=== PATIENT | female | born 1980 | race Caucasian/White ===

== ENCOUNTER 2016-07-22 08:09 | Observation (INO) | payer SELFPAY ==
[~2016-07-22] VITALS: Ht 175.3 cm; Wt 90.0 kg
[2016-07-22] VITALS (8 sets, daily range): BP systolic 115–170; BP diastolic 57–96; PULSE 98–115; RESP 14–18; TEMP 98–99.2; O2SAT 95–100
[2016-07-22] MEDS ORDERED: SODIUM CHLOR 0.9% 1000 ML INJ 1,000 ML IV SCH (08:42)
[2016-07-22] MEDS ORDERED: MORPHINE SULFATE 4 MG/ML INJ IV PUSH ONE ×3 (08:45→16:45)
[2016-07-22] MEDS ORDERED: ONDANSETRON HCL 4 MG/2 ML VIAL IVP ONE (08:45)
--- NOTE | 2016-07-22 08:48 | PD ---
HPI Chief Complaint: GI Complaint Time Seen by Provider: 08:32 Travel History International Travel<30 days: No Contact w/Intl Traveler<30days: No Traveled to known affect area: No History of Present Illness HPI 35yo F with PMH of asthma presents to the ED with abdominal cramping and bloody diarrhea for 3-4 days. States cramping is intermittent and mainly lower abdomen. Diarrhea is bright red and pt has never had this before. +Nausea and NBNB vomiting. Pt is a chronic alcohol user. Fever today. Denies any chest pain, sob, urinary complaint, traveling, vaginal bleeding or discharge. Has family history of liver CA but not colon CA. Never had colonoscopy. PFSH Past Medical History ?: Not Social History Tobacco Use: No Allergies-Medications (Allergen,Severity, Reaction): Coded Allergies: No Known Allergies (Unverified , 07/22/16) Reported Meds & Prescriptions Reported Meds & Active Scripts Active Zofran Odt (Ondansetron Odt) 4 Mg Tab 4 Mg SL Q8HR PRN Proair Hfa 8.5 GM Inh (Albuterol Sulfate) 90 Mcg/Act Aer 1 Puff INH Q4H PRN 108 mcg/actuation Acetaminophen Extra Strength (Acetaminophen) 500 Mg Tab 500 Mg PO Q6H PRN Omeprazole 40 Mg Cap 40 Mg PO DAILY Reported Proair Hfa 8.5 GM Inh (Albuterol Sulfate) 90 Mcg/Act Aer 2 Puff INH Q4-6H PRN 108 mcg/actuation Review of Systems Except as stated in HPI: all other systems reviewed are Neg Physical Exam Narrative GENERAL: 35yo F in mild distress. SKIN: Focused skin assessment warm/dry. HEAD: Atraumatic. Normocephalic. CARDIOVASCULAR: Mildly tachycardic. No murmur appreciated. RESPIRATORY: No accessory muscle use. Clear to auscultation. Breath sounds equal bilaterally. GASTROINTESTINAL: Abdomen soft, +Suprapubic ttp > RLQ. No rebound tenderness or guarding. BACK: +CVA tenderness on left. RECTAL: No external or internal hemorrhoids palpated. Brown stool, hemaprompt positive. MUSCULOSKELETAL: No obvious deformities. No clubbing. No cyanosis. No edema. NEUROLOGICAL: Awake and alert. No obvious cranial nerve deficits. Motor grossly within normal limits. Normal speech. PSYCHIATRIC: Appropriate mood and affect; insight and judgment normal. Data Data Last Documented VS Vital Signs Date Time Temp Pulse Resp B/P Pulse Ox O2 Delivery O2 Flow Rate FiO2 07/22/16 16:12 115 14 130/80 98 Room Air 07/22/16 08:48 99.2 Orders Complete Blood Count With Diff (07/22/16 08:42) Comprehensive Metabolic Panel (07/22/16 08:42) Lipase (07/22/16 08:42) Prothrombin Time / Inr (Pt) (07/22/16 08:42) Act Partial Throm Time (Ptt) (07/22/16 08:42) Urinalysis - C+S If Indicated (07/22/16 08:42) Ct Abd/Pel W Iv Contrast(Rout) (07/22/16 08:42) Iv Access Insert/Monitor (07/22/16 08:42) Ecg Monitoring (07/22/16 08:42) Oximetry (07/22/16 08:42) Morphine Inj (Morphine Inj) (07/22/16 08:45) Ondansetron Inj (Zofran Inj) (07/22/16 08:45) Sodium Chlor 0.9% 1000 Ml Inj (Ns 1000 M (07/22/16 08:42) Sodium Chloride 0.9% Flush (Ns Flush) (07/22/16 08:45) Ed Urine Pregnancytest Poc (07/22/16 08:42) Type And Screen (07/22/16 08:48) Iohexol 350 Inj (Omnipaque 350 Inj) (07/22/16 09:34) Morphine Inj (Morphine Inj) (07/22/16 11:00) Sodium Chlor 0.9% 1000 Ml Inj (Ns 1000 M (07/22/16 11:00) Pantoprazole Inj (Protonix Inj) (07/22/16 13:00) Gc And Chlamydia Pcr (07/22/16 15:34) Wet Prep Profile (07/22/16 15:34) Sodium Chlor 0.9% 1000 Ml Inj (Ns 1000 M (07/22/16 15:45) Sodium Chlor 0.9% 1000 Ml Inj (Ns 1000 M (07/22/16 16:45) Morphine Inj (Morphine Inj) (07/22/16 16:45) Thyroid Stimulating Hormone (07/22/16 16:40) Us Pelvis Comp Demand Generation Manager/Non-Preg (07/22/16 ) Admit Order (Ed Use Only) (07/22/16 17:57) Consult Gastroenterology (07/22/16 ) Labs Laboratory Tests Test 07/22/16 07/22/16 07/22/16 07/22/16 08:20 08:25 08:45 15:40 White Blood Count 11.6 TH/MM3 Red Blood Count 4.33 MIL/MM3 Hemoglobin 13.7 GM/DL Hematocrit 40.2 % Mean Corpuscular Volume 92.8 FL Mean Corpuscular Hemoglobin 31.6 PG Mean Corpuscular Hemoglobin 34.1 % Concent Red Cell Distribution Width 13.0 % Platelet Count 305 TH/MM3 Mean Platelet Volume 8.0 FL Neutrophils (%) (Auto) 75.4 % Lymphocytes (%) (Auto) 14.4 % Monocytes (%) (Auto) 8.7 % Eosinophils (%) (Auto) 1.2 % Basophils (%) (Auto) 0.3 % Neutrophils # (Auto) 8.8 TH/MM3 Lymphocytes # (Auto) 1.7 TH/MM3 Monocytes # (Auto) 1.0 TH/MM3 Eosinophils # (Auto) 0.1 TH/MM3 Basophils # (Auto) 0.0 TH/MM3 CBC Comment DIFF FINAL Differential Comment Prothrombin Time 10.2 SEC Prothromb Time International 0.9 RATIO Ratio Activated Partial 26.7 SEC Thromboplast Time Sodium Level 135 MEQ/L Potassium Level 4.3 MEQ/L Chloride Level 102 MEQ/L Carbon Dioxide Level 24.6 MEQ/L Anion Gap 8 MEQ/L Blood Urea Nitrogen 9 MG/DL Creatinine 0.78 MG/DL Estimat Glomerular Filtration 85 ML/MIN Rate Random Glucose 86 MG/DL Calcium Level 8.8 MG/DL Total Bilirubin 0.3 MG/DL Aspartate Amino Transf 14 U/L (AST/SGOT) Alanine Aminotransferase 17 U/L (ALT/SGPT) Alkaline Phosphatase 121 U/L Total Protein 8.4 GM/DL Albumin 3.4 GM/DL Lipase 149 U/L Urine Color YELLOW Urine Turbidity CLEAR Urine pH 5.0 Urine Specific [place] 1.014 Urine Protein NEG mg/dL Urine Glucose (UA) NEG mg/dL Urine Ketones NEG mg/dL Urine Occult Blood TRACE Urine Nitrite NEG Urine Bilirubin NEG Urine Urobilinogen LESS THAN 2.0 MG/DL Urine Leukocyte Esterase NEG Urine RBC 1 /hpf Urine Squamous Epithelial 1 /hpf Cells Urine Mucus FEW /lpf Microscopic Urinalysis Comment CULT NOT INDICATED Blood Type A POSITIVE Antibody Screen NEGATIVE Blood Bank Comment Clue Cells (Wet Prep) NS Vaginal Trichomonas (Wet Prep) NS Vaginal Yeast (Wet Prep) NS Chlamydia trachomatis DNA NOT DETECTED (PCR) Neisseria gonorrhoeae DNA NOT DETECTED (PCR) Test 07/22/16 17:30 Thyroid Stimulating Hormone 4.800 uIU/ML 3rd Gen [facility] Medical Decision Making Medical Screen Exam Complete: Yes Emergency Medical Condition: Yes Interpretation(s) Laboratory Tests Test 07/22/16 07/22/16 07/22/16 08:20 08:25 08:45 White Blood Count 11.6 TH/MM3 (4.0-11.0) Red Blood Count 4.33 MIL/MM3 (4.00-5.30) Hemoglobin 13.7 GM/DL (11.6-15.3) Hematocrit 40.2 % (35.0-46.0) Mean Corpuscular Volume 92.8 FL (80.0-100.0) Mean Corpuscular Hemoglobin 31.6 PG (27.0-34.0) Mean Corpuscular Hemoglobin 34.1 % Concent (32.0-36.0) Red Cell Distribution Width 13.0 % (11.6-17.2) Platelet Count 305 TH/MM3 (150-450) Mean Platelet Volume 8.0 FL (7.0-11.0) Neutrophils (%) (Auto) 75.4 % (16.0-70.0) Lymphocytes (%) (Auto) 14.4 % (9.0-44.0) Monocytes (%) (Auto) 8.7 % (0.0-8.0) Eosinophils (%) (Auto) 1.2 % (0.0-4.0) Basophils (%) (Auto) 0.3 % (0.0-2.0) Neutrophils # (Auto) 8.8 TH/MM3 (1.8-7.7) Lymphocytes # (Auto) 1.7 TH/MM3 (1.0-4.8) Monocytes # (Auto) 1.0 TH/MM3 (0-0.9) Eosinophils # (Auto) 0.1 TH/MM3 (0-0.4) Basophils # (Auto) 0.0 TH/MM3 (0-0.2) CBC Comment DIFF FINAL Differential Comment Prothrombin Time 10.2 SEC (9.8-11.6) Prothromb Time International 0.9 RATIO Ratio Activated Partial 26.7 SEC Thromboplast Time (24.3-30.1) Sodium Level 135 MEQ/L (136-145) Potassium Level 4.3 MEQ/L (3.5-5.1) Chloride Level 102 MEQ/L (98-107) Carbon Dioxide Level 24.6 MEQ/L (21.0-32.0) Anion Gap 8 MEQ/L (5-15) Blood Urea Nitrogen 9 MG/DL (7-18) Creatinine 0.78 MG/DL (0.50-1.00) Estimat Glomerular Filtration 85 ML/MIN (>89) Rate Random Glucose 86 MG/DL (74-106) Calcium Level 8.8 MG/DL (8.5-10.1) Total Bilirubin 0.3 MG/DL (0.2-1.0) Aspartate Amino Transf 14 U/L (15-37) (AST/SGOT) Alanine Aminotransferase 17 U/L (10-53) (ALT/SGPT) Alkaline Phosphatase 121 U/L (45-117) Total Protein 8.4 GM/DL (6.4-8.2) Albumin 3.4 GM/DL (3.4-5.0) Lipase 149 U/L (73-393) Urine Color YELLOW (YELLW/STRAW) Urine Turbidity CLEAR (CLEAR) Urine pH 5.0 (5.0-8.5) Urine Specific [place] 1.014 (1.002-1.035) Urine Protein NEG mg/dL (NEG-TRACE) Urine Glucose (UA) NEG mg/dL (NEG) Urine Ketones NEG mg/dL (NEG) Urine Occult Blood TRACE (NEG) Urine Nitrite NEG (NEG) Urine Bilirubin NEG (NEG) Urine Urobilinogen LESS THAN 2.0 MG/DL (LESS THAN 2.0) Urine Leukocyte Esterase NEG (NEG) Urine RBC 1 /hpf (0-3) Urine Squamous Epithelial 1 /hpf (0-5) Cells Urine Mucus FEW /lpf (OCC) Microscopic Urinalysis Comment CULT NOT INDICATED Blood Type A POSITIVE Antibody Screen NEGATIVE Blood Bank Comment Last Impressions Abdomen/Pelvis CT 07/22/16 0842 Signed Impressions: Service Date/Time: Friday, July 22, 2016 09:29 - CONCLUSION: No acute disease. Royal Monterroso MD Differential Diagnosis Inflammatory bowel disease vs. infectious colitis vs. pyelonephritis vs. nephrolithiasis vs. appendicitis Narrative Course 35yo F with c/o abdominal pain and blood in bowel movement. Pt is well appearing and rectal exam showed brown stool with trace of positive hemoccult. Pt given pantoprazole 40mg IV. Labs reviewed, mild leukocytosis at 11.6. Lipase normal. Mildly elevated alk phos at 121. UA showed no leukocyte or nitrite. CT a/p showed no acute disease. Pt was given morphine 4mg IV and reevaluated at bedside. States pain went away but now it is coming back so another 4mg IV of morphine given. Pt given zofran and NS IVF and now is no longer nauseous. Pt tolerating PO. Pt is requesting proair prescription because she ran out of it and has not found a PMD but is not sob and not in asthma exacerbation. However, pt is still tachycardic at 110-115bpm after 2 liters of IVF NS. Pt states she had cyst in right ovary before. Pelvic exam showed mild white physiologic appearing discharge. Wet prep negative. US pelvis showed 16mm right ovarian cyst. Otherwise normal pelvic ultrasound. Pt reevaluated at bedside. HR is now 103-105 after 3 liters of IVF NS. Pt given 3 doses of morphine for pain and still with some abdominal pain. Although pain has improved. Will admit pt for observation for persistent tachycardia and monitor H/H for lower GI bleed. Discussed with Dr. Ferraro and accepted to her service. [facility] Point of Care Internal Pos. & Neg. Controls: Passed Fecal Specimen Occult Blood: Positive Diagnosis Primary Impression: Abdominal pain Qualified Code: R10.9 - Abdominal pain, unspecified location Admitting Information Admitting Physician Requests: Observation Additional Instructions: Please follow up with GI clinic in 1-2 days. Return to the ED if symptoms worsen. Scripts Ondansetron Odt (Zofran Odt)4 Mg Tab4 Mg SL Q8HR PRN (Nausea/Vomiting) #6 TAB Ref 0 Prov:LopezMarcella 07/22/16 Albuterol 8.5 GM Inh (Proair Hfa 8.5 GM Inh)90 Mcg/Act Aer1 Puff INH Q4H PRN ( SHORTNESS OF BREATH) #1 INHALER Ref 0 108 mcg/actuation Prov:Marcella Lopez DO 07/22/16 Acetaminophen (Acetaminophen Extra Strength)500 Mg Tys881 Mg PO Q6H PRN (PAIN SCALE 1 TO 4) #20 TAB Ref 0 Prov:Marcella Lopez DO 07/22/16 Omeprazole 40 Mg Cap40 Mg PO DAILY #7 CAP Ref 0 Prov:Marcella Lopez DO 07/22/16 Marcella Lopez DO July 22, 2016 08:48
[2016-07-22] MEDS ORDERED: ALBUAER3 INH ×2 (08:54→12:21)
[2016-07-22 09:01] LABS: AUTOMATED NEUTROPHIL # 8.8 TH/MM3 (1.8-7.7); BASOPHIL % 0.3 % (0.0-2.0); EOSINOPHIL # 0.1 TH/MM3 (0-0.4); EOSINOPHIL % 1.2 % (0.0-4.0); HEMATOCRIT 40.2 % (35.0-46.0); HEMO FLAGS DIFF FINAL; LYMPH % 14.4 % (9.0-44.0); LYMPHOCYTE # 1.7 TH/MM3 (1.0-4.8); MEAN CELL VOLUME 92.8 FL (80.0-100.0); MEAN CORPUSCULAR HEMOGLOBIN 31.6 PG (27.0-34.0); MEAN CORPUSCULAR HGB CONC 34.1 % (32.0-36.0); MONO % 8.7 % (0.0-8.0); NEUT % 75.4 % (16.0-70.0); PLATELET COUNT 305 TH/MM3 (150-450); RED BLOOD COUNT 4.33 MIL/MM3 (4.00-5.30); WHITE BLOOD COUNT 11.6 TH/MM3 (4.0-11.0)
[2016-07-22 09:04] LABS: BLOOD, URINE TRACE (NEG); COMMENT (UR) CULT NOT INDICATED; CULTURE IF INDICATED CULT NOT INDICATED; GLUCOSE,URINE NEG (NEG); KETONE, URINE NEG (NEG); MUCUS URINE FEW /lpf (OCC); NITRITE,URINE NEG (NEG); SQUAMOUS EPITHELIAL CELL URINE 1 /hpf (0-5); URINE COLOR YELLOW (YELLW/STRAW)
[2016-07-22 09:13] LABS: APTT (PATIENT) 26.7 SEC (24.3-30.1); INTERNATIONAL NORMALIZED RATIO 0.9 RATIO; PROTHROMBIN TIME - PATIENT 10.2 SEC (9.8-11.6)
[2016-07-22 09:16] LABS: ANION GAP 8 MEQ/L (5-15); AST (GOT) 14 U/L (15-37); BICARBONATE 24.6 MEQ/L (21.0-32.0); BLOOD UREA NITROGEN 9 MG/DL (7-18); CHLORIDE 102 MEQ/L (98-107); GLOMERULAR FILTRATION RATE 85 ML/MIN (>89); POTASSIUM 4.3 MEQ/L (3.5-5.1); SODIUM (NA) 135 MEQ/L (136-145)
[2016-07-22 09:19] LABS: ALKALINE PHOSPHATASE 121 U/L (45-117); ALT (GPT) 17 U/L (10-53); TOTAL BILIRUBIN ADULT 0.3 MG/DL (0.2-1.0)
[2016-07-22] MEDS ORDERED: IOHEXOL 350 MG/ML 10 ML VIAL (for RAD DIAG) IV ONE (09:34)
--- NOTE | 2016-07-22 09:45 | RADRPT ---
EXAM DATE/TIME: 07/22/2016 09:29 [facility] COMPARISON: No previous studies available for comparison. INDICATIONS : Lower abdomen pain and diarrhea for four days. IV CONTRAST: 96 cc Omnipaque 350 (iohexol) IV ORAL CONTRAST: No oral contrast ingested. RADIATION DOSE: 12.51 CTDIvol (mGy) MEDICAL HISTORY : None SURGICAL HISTORY : None. ENCOUNTER: Initial ACUITY: 4 - 6 days PAIN SCALE: 6/10 LOCATION: Bilateral lower quadrant TECHNIQUE: Volumetric scanning of the abdomen and pelvis was performed. Using automated exposure control and ad justment of the mA and/or kV according to patient size, radiation dose was kept as low as reasonably achievable to obtain optimal diagnostic quality images. FINDINGS: LOWER LUNGS: The visualized lower lungs are clear. LIVER: Homogeneous density without lesion. There is no dilation of the biliary tree. No calcified gallston es. SPLEEN: Normal size without lesion. PANCREAS: Within normal limits. KIDNEYS: Normal in size and shape. There is no mass, stone or hydronephrosis. ADRENAL GLANDS: Within normal limits. VASCULAR: There is no aortic aneurysm. BOWEL/MESENTERY: The stomach, small bowel, and colon demonstrate no acute abnormality. There is no free intraperitone al air or fluid. ABDOMINAL WALL: Within normal limits. RETROPERITONEUM: There is no lymphadenopathy. BLADDER: No wall thickening or mass. REPRODUCTIVE: Within normal limits. INGUINAL: There is no lymphadenopathy or hernia. MUSCULOSKELETAL: Within normal limits for patient age. CONCLUSION: No acute disease. Royal Monterroso MD on July 22, 2016 at 9:41 Board Certified Radiologist. This report was verified electronically.
[2016-07-22] MEDS ORDERED: SODIUM CHLOR 0.9% 1000 ML INJ 1,000 ML IV ONE ×3 (11:00→16:45)
[2016-07-22] MEDS ORDERED: ACET500T36 PO (11:34)
[2016-07-22] MEDS ORDERED: OMEP40CA2 PO (11:34)
[2016-07-22] MEDS ORDERED: ZOFR4TAB3 SL (12:28)
[2016-07-22] MEDS ORDERED: PANTOPRAZOLE SODIUM 40 MG VIAL IV PUSH ONE (13:00)
--- NOTE | 2016-07-22 17:21 | RADRPT ---
EXAM DATE/TIME: 07/22/2016 15:46 [facility] COMPARISON: No previous studies available for comparison. INDICATIONS : Pelvic pain. MEDICAL HISTORY : Asthma. Diarrhea. SURGICAL HISTORY : None. ENCOUNTER: Initial ACUITY: 4-6 days PAIN SCORE: 5/10 LOCATION: Bilateral pelvis MEASUREMENTS: UTERUS: 8.1 x 5.3 x 3.1 cm ENDOMETRIAL STRIPE: 11 mm RIGHT OVARY: 3.6 x 2.4 x 2.1 cm LEFT OVARY: 3.9 x 2.3 x 1.7 cm FINDINGS: UTERUS: The myometrium has homogeneous echotexture without mass. RIGHT OVARY: Ovary contains no mass or lesion. A 16mm cyst is identified in the ovary. LEFT OVARY: Ovary contains no mass or significant cystic lesion. MISCELLANEOUS: No free fluid. CONCLUSION: 16mm right ovarian cyst. Otherwise normal pelvic ultrasound. Royal Monterroso MD on July 22, 2016 at 17:17 Board Certified Radiologist. This report was verified electronically.
[2016-07-22 18:21] LABS: CHLAMYDIA PCR NOT DETECTED (NOT DETECT); NEISSERIA PCR NOT DETECTED (NOT DETECT)
--- NOTE | 2016-07-22 18:57 | HHI.HP ---
HPI Service [facility] Primary Care Physician No Primary Care Physician Admission Diagnosis Lower GI bleed, persistent tachcardia Diagnoses: Chief Complaint: Abdominal cramping and bright red blood x 3 days. Travel History International Travel<30 Days: No Contact w/Intl Traveler <30 Da: No Traveled to Known Affected Are: No History of Present Illness Ms. Bernal is a 35-year-old female with a known history of alcohol abuse who currently drinks roughly eight beers per day who presented to the ED with complaints of lower abdominal pain and bright red blood in stools x 3 days. Patient states that she noticed her pain has been an 8/10 on pain scale, sharp, intermittent, initially started in her right lower quadrant which eventually radiated to her back. Patient does complain of diarrhea for several weeks now. Also states that her pain has been impeding her appetite, making her nauseous with associated occasional vomiting. Patient states her last missed period was two weeks ago. She does drink a significant amount of alcohol, at least eight beers per day. Denies any recent fever, cough, shortness of breath, chest pain or dizziness. Review of Systems Constitutional: COMPLAINS OF: Fever, Change in appetite Gastrointestinal: COMPLAINS OF: Abdominal pain, Bloody stools, Diarrhea, Nausea , Vomiting Except as stated in HPI: all other systems reviewed are Neg Past Family Social History Past Medical History Alcohol abuse Polycystic Ovarian disease History of abnormal pap, lack of follow up. Past Surgical History Eustachian tubes as a child. Reported Medications Active Zofran Odt (Ondansetron Odt) 4 Mg Tab 4 Mg SL Q8HR PRN Proair Hfa 8.5 GM Inh (Albuterol Sulfate) 90 Mcg/Act Aer 1 Puff INH Q4H PRN 108 mcg/actuation Acetaminophen Extra Strength (Acetaminophen) 500 Mg Tab 500 Mg PO Q6H PRN Omeprazole 40 Mg Cap 40 Mg PO DAILY Reported Proair Hfa 8.5 GM Inh (Albuterol Sulfate) 90 Mcg/Act Aer 2 Puff INH Q4-6H PRN 108 mcg/actuation Allergies: Coded Allergies: No Known Allergies (Unverified , 07/22/16) Active Ordered Medications Current Medications Medications (Trade) Dose Ordered Sig/Tyler Route Start Time Stop Time Status Last Admin (NS Flush) 2 ml UNSCH PRN IV FLUSH 07/22/16 08:45 Family History Patients paternal medical history significant for alcoholism. Patient mother has a significant medical history of hypertension. Social History Patient lives at home with fiance. Denies any tobacco use. Does admit to drinking 8 beers per day. Denies any illicit drug use. Physical Exam Vital Signs Vital Signs Date Time Temp Pulse Resp B/P Pulse Ox O2 Delivery O2 Flow Rate FiO2 07/22/16 16:12 115 14 130/80 98 Room Air 07/22/16 12:20 105 14 115/72 96 07/22/16 12:09 14 07/22/16 12:07 107 14 116/69 96 Room Air 07/22/16 09:36 14 07/22/16 08:48 14 07/22/16 08:48 99.2 115 14 141/87 98 Room Air 07/22/16 08:11 98.9 112 14 170/96 98 Physical Exam GENERAL: Well-nourished, well-developed patient in NAD. SKIN: Warm and dry. No rash. HEENT: Normocephalic. Atraumatic. Pupils equal and round. No scleral icterus. No injection or drainage. No nasal bleeding or discharge. Mucous membranes pink and moist.Supple. Trachea midline. CARDIOVASCULAR: Regular rate and rhythm. S1, S2 noted. No murmur appreciated. RESPIRATORY: No accessory muscle use. Clear to auscultation. Breath sounds equal bilaterally. GASTROINTESTINAL: Abdomen soft, nondistended. Tender to palpation in right and left lower quadrant. Normoactive bowel sounds x4. MUSCULOSKELETAL: No obvious deformities. Extremities without clubbing, cyanosis , or edema. NEUROLOGICAL: Awake and alert. No obvious cranial nerve deficits. Motor grossly within normal limits. 5/5 muscle strength in bilateral upper and lower extremities. Normal speech. PSYCHIATRIC: Appropriate mood and affect; insight and judgment normal. Laboratory Laboratory Tests Test 07/22/16 07/22/16 07/22/16 07/22/16 08:20 08:25 08:45 15:40 White Blood Count 11.6 Red Blood Count 4.33 Hemoglobin 13.7 Hematocrit 40.2 Mean Corpuscular Volume 92.8 Mean Corpuscular Hemoglobin 31.6 Mean Corpuscular Hemoglobin 34.1 Concent Red Cell Distribution Width 13.0 Platelet Count 305 Mean Platelet Volume 8.0 Neutrophils (%) (Auto) 75.4 Lymphocytes (%) (Auto) 14.4 Monocytes (%) (Auto) 8.7 Eosinophils (%) (Auto) 1.2 Basophils (%) (Auto) 0.3 Neutrophils # (Auto) 8.8 Lymphocytes # (Auto) 1.7 Monocytes # (Auto) 1.0 Eosinophils # (Auto) 0.1 Basophils # (Auto) 0.0 CBC Comment DIFF FINAL Differential Comment Prothrombin Time 10.2 Prothromb Time International 0.9 Ratio Activated Partial 26.7 Thromboplast Time Sodium Level 135 Potassium Level 4.3 Chloride Level 102 Carbon Dioxide Level 24.6 Anion Gap 8 Blood Urea Nitrogen 9 Creatinine 0.78 Estimat Glomerular Filtration 85 Rate Random Glucose 86 Calcium Level 8.8 Total Bilirubin 0.3 Aspartate Amino Transf 14 (AST/SGOT) Alanine Aminotransferase 17 (ALT/SGPT) Alkaline Phosphatase 121 Total Protein 8.4 Albumin 3.4 Lipase 149 Urine Color YELLOW Urine Turbidity CLEAR Urine pH 5.0 Urine Specific [place] 1.014 Urine Protein NEG Urine Glucose (UA) NEG Urine Ketones NEG Urine Occult Blood TRACE Urine Nitrite NEG Urine Bilirubin NEG Urine Urobilinogen LESS THAN 2.0 Urine Leukocyte Esterase NEG Urine RBC 1 Urine Squamous Epithelial 1 Cells Urine Mucus FEW Microscopic Urinalysis Comment CULT NOT INDICATED Blood Type A POSITIVE Antibody Screen NEGATIVE Blood Bank Comment Clue Cells (Wet Prep) NS Vaginal Trichomonas (Wet Prep) NS Vaginal Yeast (Wet Prep) NS Chlamydia trachomatis DNA NOT DETECTED (PCR) Neisseria gonorrhoeae DNA NOT DETECTED (PCR) Test 07/22/16 17:30 Thyroid Stimulating Hormone 4.800 3rd Gen Result Diagram: 07/22/16 0820 07/22/16 0820 Imaging Last Impressions Abdomen/Pelvis CT 07/22/16 0842 Signed Impressions: Service Date/Time: Friday, July 22, 2016 09:29 - CONCLUSION: No acute disease. Royal Monterroso MD Pelvis Ultrasound 07/22/16 0000 Signed Impressions: Service Date/Time: Friday, July 22, 2016 15:46 - CONCLUSION: 16mm right ovarian cyst. Otherwise normal pelvic ultrasound. Royal Monterroso MD Assessment and Plan Assessment and Plan Ms. Bernal is a 35-year-old female with a known history of alcohol abuse who currently drinks roughly eight beers per day who presented to the ED with complaints of lower abdominal pain and bright red blood in stools x 3 days. Abdominal pain/diarrhea, chronic - Abdominal/Pelvis CT reviewed by me, no acute disease. Pelvis US reviewed by me, 16mm right ovarian cyst, otherwise normal. - Will obtain stool studies. WBC WNL. Afebrile. - GI consulted, appreciate input. - RN to document diarrhea occurrences. Bright red blood in stool: most likely hemorrhoids - Hemoglobin 13.7/Hematocrit 40.2. - Hemoccult positive. - Monitor H&H Tachycardia most likely secondary to dehydration - Status post 4 L NS bolus in ED. - Monitor heart rate. -continue to IVFs. Alcohol abuse - CIWA protocol - Monitor withdrawal symptoms - Seizure precautions DVT Prophylaxis: SCDs. Code Status full Discussed Condition With Dr. Ferraro Attestation The exam, history, and the medical decision-making described in the above note were completed with the assistance of the mid-level provider. I reviewed and agree with the findings presented. I attest that I had a [id number] encounter with the patient on the same day, and personally performed and documented my assessment and findings in the medical record. patient c/o diarrhea for 3-4 weeks and abdominal pain. + blood stools only when wiping on toilette paper the past 3 days. denied any CP, palpitations or SOB. No recent travels or antibiotics use. no family hx of autoimmune disease Gen NAD and clinically looks well, Resp CTA B/L Abd soft mild TTP in LLQ CV rrr. no r/m/g A/P chronic abdominal pain and diarrhea. CT scan reviewed and shows ovarian cyst will get stool studies,. monitor H/H and hydrate with IVFs. Brittni Burdick July 22, 2016 18:57 Giovanna Ferraro MD July 22, 2016 19:05
[2016-07-22] MEDS: SODIUM CHLOR 0.9% 1000 ML INJ 1,000 ML IV SCH (19:15)
[2016-07-22] MEDS: MULTIVITAMINS/MINERALS THERAPEUTIC TAB PO SCH (19:32)
[2016-07-22] MEDS: THIAMINE HCL 100 MG TAB PO SCH (19:32)
[2016-07-22] MEDS: FOLIC ACID 1 MG TAB PO SCH (19:32)
[2016-07-22] MEDS: PANTOPRAZOLE SOD 40 MG DELAYED RELEASE TAB PO SCH (19:32)
[2016-07-22] MEDS ORDERED: LORazepam 2 MG TAB PO PRN (22:45)
[2016-07-22] MEDS ORDERED: LORazepam 1 MG TAB PO PRN (22:45)
[2016-07-22] MEDS ORDERED: FLUMAZENIL 0.5 MG/5 ML VIAL IV PUSH PRN (22:45)
[2016-07-22] MEDS ORDERED: LORazepam 2 MG/ML VIAL IV PUSH PRN ×3 (22:45)
[2016-07-22] MEDS: MORPHINE SULFATE 4 MG/ML INJ IV PUSH PRN (23:07)
[2016-07-23] VITALS (9 sets, daily range): BP systolic 110–141; BP diastolic 54–85; PULSE 64–105; RESP 14–18; TEMP 97.9–98.5; O2SAT 95–100
[2016-07-23] MEDS: SODIUM CHLOR 0.9% 1000 ML INJ 1,000 ML IV SCH ×3 (03:15→20:18)
[2016-07-23] MEDS: SODIUM CHLORIDE 0.9% FLUSH 10 ML FLUSH IV FLUSH PRN (09:35)
[2016-07-23] MEDS: FOLIC ACID 1 MG TAB PO SCH (09:35)
[2016-07-23] MEDS: THIAMINE HCL 100 MG TAB PO SCH (09:35)
[2016-07-23] MEDS: PANTOPRAZOLE SOD 40 MG DELAYED RELEASE TAB PO SCH (09:35)
[2016-07-23] MEDS: MULTIVITAMINS/MINERALS THERAPEUTIC TAB PO SCH (09:35)
[2016-07-23] MEDS: MORPHINE SULFATE 4 MG/ML INJ IV PUSH PRN ×3 (09:41→20:37)
[2016-07-23] MEDS: ONDANSETRON HCL 4 MG/2 ML VIAL IV PRN ×2 (09:41→17:57)
--- NOTE | 2016-07-23 10:34 | HHI.PR ---
Subjective Remarks Follow up for diarrhea with hematochezia. The patient reports 5 more episodes of diarrhea with bright red blood per rectum overnight. She also reports diffuse abdominal cramping that starts in the upper abdomen shortly after she eats, then moves to the lower abdomen. She reports some nausea but no vomiting, relieved by IV Zofran. She has not been able to tolerate oral intake. She has never had hematochezia in the past. She has never had an EGD/colonoscopy. She has no other medical complaints at this time. Objective Vitals Vital Signs Date Time Temp Pulse Resp B/P Pulse Ox O2 Delivery O2 Flow Rate FiO2 07/23/16 08:00 91 07/23/16 07:26 98.3 90 14 112/54 95 07/23/16 05:10 98.4 97 18 110/59 95 07/23/16 01:33 105 07/22/16 23:52 98.4 98 18 123/57 100 07/22/16 21:58 98.0 99 18 134/64 95 07/22/16 18:28 109 14 135/70 96 Room Air 07/22/16 16:12 115 14 130/80 98 Room Air 07/22/16 12:20 105 14 115/72 96 07/22/16 12:09 14 07/22/16 12:07 107 14 116/69 96 Room Air Result Diagram: 07/22/16 0820 07/22/16 0820 Imaging Last Impressions Abdomen/Pelvis CT 07/22/16 0842 Signed Impressions: Service Date/Time: Friday, July 22, 2016 09:29 - CONCLUSION: No acute disease. Royal Monterroso MD Pelvis Ultrasound 07/22/16 0000 Signed Impressions: Service Date/Time: Friday, July 22, 2016 15:46 - CONCLUSION: 16mm right ovarian cyst. Otherwise normal pelvic ultrasound. Royal Monterroso MD Objective Remarks GENERAL: Well-nourished, well-developed middle aged female patient in [facility]. SKIN: Warm and dry. No rash. HEENT: Normocephalic. Atraumatic.Pupils equal and round. Mucous membranes pink and moist. NECK: Supple. Trachea midline. CARDIOVASCULAR: Regular rate and rhythm. S1, S2 noted. No murmur appreciated. RESPIRATORY: No accessory muscle use. Clear to auscultation. Breath sounds equal bilaterally. GASTROINTESTINAL: Abdomen soft, nondistended, mild diffuse lower abdominal TTP. Normoactive bowel sounds x4. MUSCULOSKELETAL: No obvious deformities. Extremities without clubbing, cyanosis , or edema. NEUROLOGICAL: Awake and alert. No obvious cranial nerve deficits. Motor grossly within normal limits. Normal speech. PSYCHIATRIC: Appropriate mood and affect; insight and judgment normal. Medications and IVs Current Medications Medications (Trade) Dose Ordered Sig/Tyler Route Start Time Stop Time Status Last Admin (NS Flush) 2 ml UNSCH PRN IV FLUSH 07/22/16 08:45 07/23/16 09:35 (Folate) 1 mg DAILY PO 07/22/16 19:00 07/27/16 18:59 07/23/16 09:35 (Vitamin B1) 100 mg DAILY PO 07/22/16 19:00 07/23/16 09:35 (Theragran M Tab) 1 tab DAILY PO 07/22/16 19:00 07/27/16 18:59 07/23/16 09:35 (Zofran Inj) 4 mg Q6H PRN IV 07/22/16 19:00 07/23/16 09:41 Pantoprazole Sodium 40 mg 40 mg DAILY PO 07/22/16 19:00 07/23/16 09:35 (NS 1000 ml Inj) 1,000 ml @ 125 mls/hr Q8H IV 07/22/16 19:15 07/22/16 19:15 (Romazicon Inj) 0.2 mg Q1M PRN IV PUSH 07/22/16 22:45 (Ativan) 1 mg Q4H PRN PO 07/22/16 22:45 07/22/16 23:07 (Ativan Inj) 1 mg Q4H PRN IV PUSH 07/22/16 22:45 (Ativan) 2 mg Q2H PRN PO 07/22/16 22:45 (Ativan Inj) 2 mg Q2H PRN IV PUSH 07/22/16 22:45 (Ativan Inj) 2 mg Q1H PRN IV PUSH 07/22/16 22:45 (Ativan Inj) 2 mg Q15M PRN IV PUSH 07/22/16 22:45 (Morphine Inj) 2 mg Q4H PRN IV PUSH 07/22/16 22:45 07/23/16 09:41 A/P Problem List: (1) Abdominal pain ICD Code: R10.9 Status: Acute (2) BRBPR (bright red blood per rectum) ICD Code: K62.5 Status: Acute Assessment and Plan Ms. Bernal is a 35-year-old female with a known history of alcohol abuse who currently drinks roughly eight beers per day who presented to the ED with complaints of lower abdominal pain and bright red blood in stools x 3 days. Abdominal pain/diarrhea, acute on chronic - Abdominal/Pelvis CT reviewed by me, no acute disease. Pelvis US reviewed by me, 16mm right ovarian cyst, otherwise normal. - Will obtain stool studies. WBC WNL. Afebrile. - GI consulted, appreciate recommendations Bright red blood in stool: suspect most likely hemorrhoids - Hemoglobin 13.7/Hematocrit 40.2. - Hemoccult positive in the ER. - Monitor H&H - await GI evaluation Tachycardia most likely secondary to dehydration - Status post 4 L NS bolus in ED. - Monitor heart rate. - continue IVFs. Alcohol abuse: drinks 8 beers per day. - Continue CIWA protocol - Monitor for withdrawal symptoms - Seizure precautions Elevated TSH: minimally elevated. - recommend outpatient f/up with PCP - consult case management for blue card to f/up with Dr. Washington Asthma: chronic, no wheezing on exam - albuterol nebs prn DVT Prophylaxis: SCDs. Attending Statement The exam, history, and the medical decision-making described in the above note were completed with the assistance of the mid-level provider. I reviewed and agree with the findings presented. I attest that I had a [id number] encounter with the patient on the same day, and personally performed and documented my assessment and findings in the medical record. Patient stated that she feels the same. He continues to have diarrhea but stool sample has not been taken yet. Gen NAD CV RRR. no r/m/g Abd soft NDNT. no peritoneal signs. Chronic abdominal pain/diarrhea Bright red stools per rectum Patient clinically is doing well. Tachycardia improved. GI consultation recommended EGD and colonoscopy to be done tomorrow. Patient will have EGD and colonoscopy tomorrow most likely discharged tomorrow. Problem Qualifiers (1) Abdominal pain: Qualified Code: R10.9 - Abdominal pain, unspecified location Yasmine Lynch PA-C July 23, 2016 10:33 Giovanna Ferraro MD July 23, 2016 17:05
[2016-07-23] MEDS ORDERED: RESP: ALBUTEROL 2.5 MG/3 ML NEB (PRN) NEB (10:45)
--- NOTE | 2016-07-23 10:46 | PD.CONS ---
HPI History of Present Illness This is a 35 year old [lady] who yesterday came to ER with abd pain. 4 days ago she had initial onset lower abdominal cramps that were severe, radiated to her back. The next day she had dyspepsia, burning in epigastric area and pain after eating, 10 min after. an hour after eating she would have lower abdominal pain and fecal urgency. The pain has woken kept her from sleeping some nights. There was bright red blood in stool. Even when urinating she has some BRBPR. She experienced this after eating last night in ER after eating a burger. SHe vomited yesterday morning after a few bites of toast and experiencing the epigastric burning, the emesis was pink tinged. For the last 2- 3 months she has been having diarrhea, immodium did not help her. A couple days ago she had dark tarry stool. CT abd indicates no acute disease; US shows right ovarian cyst. She had heartburn for the first time a month ago, none prior. She was taking ibuprofen recently every night for a month and a a half for headaches. Never had EGD or colonoscopy. She does admit to drinking 8 beers/day. (Kika Church) PFSH Past Medical History Alcohol abuse Polycystic Ovarian disease History of abnormal pap, lack of follow up. asthma Past Surgical History Eustachian tubes as a child. (Kika Church) Coded Allergies: No Known Allergies (Unverified , 07/22/16) Medications Current Medications Medications (Trade) Dose Ordered Sig/Tyler Route PRN Reason Start Time Stop Time Status Last Admin Dose Admin Sodium Chloride (NS Flush) 2 ml UNSCH PRN IV FLUSH FLUSH AFTER USING IV ACCESS 07/22/16 08:45 07/23/16 09:35 Folic Acid (Folate) 1 mg DAILY PO 07/22/16 19:00 07/27/16 18:59 07/23/16 09:35 Thiamine HCl (Vitamin B1) 100 mg DAILY PO 07/22/16 19:00 07/23/16 09:35 Multivitamins/ Minerals Therapeutic (Theragran M Tab) 1 tab DAILY PO 07/22/16 19:00 07/27/16 18:59 07/23/16 09:35 Ondansetron HCl (Zofran Inj) 4 mg Q6H PRN IV NAUSEA OR VOMITING 07/22/16 19:00 07/23/16 09:41 Pantoprazole Sodium 40 mg 40 mg DAILY PO 07/22/16 19:00 07/23/16 09:35 Sodium Chloride (NS 1000 ml Inj) 1,000 ml @ 125 mls/hr Q8H IV 07/22/16 19:15 07/22/16 19:15 Flumazenil (Romazicon Inj) 0.2 mg Q1M PRN IV PUSH SEE LABEL COMMENTS 07/22/16 22:45 Lorazepam (Ativan) 1 mg Q4H PRN PO CIWA 8 - 10 07/22/16 22:45 07/22/16 23:07 Lorazepam (Ativan Inj) 1 mg Q4H PRN IV PUSH CIWA 8 - 10 07/22/16 22:45 Lorazepam (Ativan) 2 mg Q2H PRN PO CIWA 11-14 07/22/16 22:45 Lorazepam (Ativan Inj) 2 mg Q2H PRN IV PUSH CIWA 11-14 07/22/16 22:45 Lorazepam (Ativan Inj) 2 mg Q1H PRN IV PUSH CIWA 15-20 07/22/16 22:45 Lorazepam (Ativan Inj) 2 mg Q15M PRN IV PUSH CIWA > 20 07/22/16 22:45 Morphine Sulfate (Morphine Inj) 2 mg Q4H PRN IV PUSH PAIN SCALE 4 TO 10 07/22/16 22:45 07/23/16 09:41 Family History Patients paternal medical history significant for alcoholism, "liver issues". Patient mother has a significant medical history of hypertension. CVD liver ca Social History Drinks 8 beers x day no tobacco no drugs (Kika Church) Review of Systems Constitutional: COMPLAINS OF: Diaphoretic episodes (when having pain), Fever, DENIES: Weight loss Endocrine: DENIES: Polyuria Eyes: DENIES: Blurred vision Ears, nose, mouth, throat: DENIES: Hearing loss Respiratory: COMPLAINS OF: Cough (wheezing) Cardiovascular: DENIES: Chest pain Gastrointestinal: COMPLAINS OF: Abdominal pain, Black stools, Bloody stools, Diarrhea, Nausea, Vomiting, Hematemesis (pinkish tinged vomit 07-21-16), DENIES: Constipation Genitourinary: DENIES: Hematuria Musculoskeletal: COMPLAINS OF: Back pain Integumentary: DENIES: Rash Hematologic/lymphatic: COMPLAINS OF: Bruising Neurologic: DENIES: Abnormal gait Psychiatric: DENIES: Confusion (Kika Church) GI Exam Vitals I&O Vital Signs Date Time Temp Pulse Resp B/P Pulse Ox O2 Delivery O2 Flow Rate FiO2 07/23/16 08:00 91 07/23/16 07:26 98.3 90 14 112/54 95 07/23/16 05:10 98.4 97 18 110/59 95 07/23/16 01:33 105 07/22/16 23:52 98.4 98 18 123/57 100 07/22/16 21:58 98.0 99 18 134/64 95 07/22/16 18:28 109 14 135/70 96 Room Air 07/22/16 16:12 115 14 130/80 98 Room Air 07/22/16 12:20 105 14 115/72 96 07/22/16 12:09 14 07/22/16 12:07 107 14 116/69 96 Room Air Imaging Last Impressions Abdomen/Pelvis CT 07/22/16 0842 Signed Impressions: Service Date/Time: Friday, July 22, 2016 09:29 - CONCLUSION: No acute disease. Royal Monterroso MD Pelvis Ultrasound 07/22/16 0000 Signed Impressions: Service Date/Time: Friday, July 22, 2016 15:46 - CONCLUSION: 16mm right ovarian cyst. Otherwise normal pelvic ultrasound. Royal Monterroso MD Laboratory Test 07/22/16 07/22/16 15:40 17:30 Clue Cells (Wet Prep) NS Vaginal Trichomonas (Wet Prep) NS Vaginal Yeast (Wet Prep) NS Chlamydia trachomatis DNA NOT DETECTED (PCR) Neisseria gonorrhoeae DNA NOT DETECTED (PCR) Thyroid Stimulating Hormone 4.800 uIU/ML 3rd Gen Physical Examination HEENT: EOMI; normocephalic; atraumatic; no jaundice. CHEST: Chest is clear to auscultation and percussion. CARDIAC: Regular rate and rhythm with no murmur gallop or rubs. ABDOMEN: Soft, nondistended, nontender; no hepatosplenomegaly; bowel sounds are present in all four quadrants. EXTREMITIES: No clubbing, cyanosis, or edema. SKIN: Normal; no rash; no jaundice. [employer]: No focal deficits; alert and oriented times three. (Kika Church) Assessment and Plan Plan ASSESSMENT - BRBPR - x 4 days, pos hemoccult per EMR. HH WNL. 1 x episode dark tarry stool. - abd pain - epigastric burning after eating for 3 days, 4 days ago lower abd cramps that were severe, radiated to her back. US 07-22-16---> 16mm right ovarian cyst; CT abd 07-22-16 no acute disease. Lipase WNL. Hx frequent NSAID use, ETOH consumption 8 x beers daily. - diarrhea - for last 2 -3 months, immodium did not help. CT as above. Never had colonoscopy or EGD. stool cx-pending. PLAN: - EGD/colonoscopy tomorrow - obtain consents - Mg Citrate prep - clears for now - NPO after midnight - await stool cx - monitor HH - further recommendations based on results of above This pt seen by myself and Dr Mack and this note is written on her behalf (Kika Church) Physician Comments seen, examined agree with above (Jessika Mack MD) Kika Church July 23, 2016 10:46 Jessika Mack MD July 23, 2016 19:47
[2016-07-23] MEDS: LORazepam 2 MG/ML VIAL IV PUSH PRN ×2 (12:00→23:30)
[2016-07-23] MEDS ORDERED: MAGNESIUM CITRATE SOLN 300 ML BTL PO ONE ×2 (16:00→18:00)
[2016-07-23] MEDS ORDERED: LORazepam 1 MG TAB PO PRN (23:15)
[2016-07-23] MEDS ORDERED: ONDANSETRON ODT 4 MG TAB PO ONE (23:15)
[2016-07-23] MEDS ORDERED: LORazepam 2 MG TAB PO PRN (23:15)
[2016-07-23] MEDS ORDERED: FLUMAZENIL 0.5 MG/5 ML VIAL IV PUSH PRN (23:15)
[2016-07-23] MEDS ORDERED: LORazepam 2 MG/ML VIAL IV PUSH PRN ×4 (23:15)
[2016-07-24] VITALS (10 sets, daily range): BP systolic 120–189; BP diastolic 64–95; PULSE 74–114; RESP 16–21; TEMP 96.6–98.7; O2SAT 93–100
[2016-07-24] MEDS: ONDANSETRON HCL 4 MG/2 ML VIAL IV PRN ×2 (02:32→14:21)
[2016-07-24] MEDS: MORPHINE SULFATE 4 MG/ML INJ IV PUSH PRN ×2 (02:33→14:21)
[2016-07-24] MEDS: SODIUM CHLOR 0.9% 1000 ML INJ 1,000 ML IV SCH ×3 (03:15→22:48)
[2016-07-24 04:36] LABS: AUTOMATED NEUTROPHIL # 6.5 TH/MM3 (1.8-7.7); BASOPHIL % 0.2 % (0.0-2.0); EOSINOPHIL # 0.1 TH/MM3 (0-0.4); EOSINOPHIL % 1.5 % (0.0-4.0); HEMATOCRIT 34.1 % (35.0-46.0); HEMO FLAGS DIFF FINAL; LYMPH % 13.9 % (9.0-44.0); LYMPHOCYTE # 1.2 TH/MM3 (1.0-4.8); MEAN CELL VOLUME 94.3 FL (80.0-100.0); MEAN CORPUSCULAR HEMOGLOBIN 32.2 PG (27.0-34.0); MEAN CORPUSCULAR HGB CONC 34.1 % (32.0-36.0); MONO % 11.4 % (0.0-8.0); PLATELET COUNT 229 TH/MM3 (150-450); RED BLOOD COUNT 3.62 MIL/MM3 (4.00-5.30); WHITE BLOOD COUNT 8.9 TH/MM3 (4.0-11.0)
[2016-07-24 05:06] LABS: BICARBONATE 25.7 MEQ/L (21.0-32.0); POTASSIUM 3.1 MEQ/L (3.5-5.1)
[2016-07-24] MEDS ORDERED: POTASSIUM CHLORIDE 20 MEQ CONTROLLED RELEASE TAB PO ONE (07:30)
[2016-07-24 07:43] LABS: MAGNESIUM 2.4 MG/DL (1.5-2.5)
--- NOTE | 2016-07-24 08:46 | HHI.PR ---
Subjective Remarks Follow up for hematochezia. Patient states she has finished to bowel prep and is still noticing a good amount of bright red blood in her stool. She states she notices it even when she is urinating, the blood is still coming out. Still complains of cramping abdominal pain in the left lower quadrant and nausea that is relieved by Zofran. Denies any chest pain, or sob. Objective Vitals Vital Signs Date Time Temp Pulse Resp B/P Pulse Ox O2 Delivery O2 Flow Rate FiO2 07/24/16 07:26 98.0 90 16 120/64 96 07/24/16 04:28 96.6 98 20 131/95 94 07/24/16 02:40 21 07/24/16 00:08 96.6 74 18 161/95 93 07/23/16 20:00 99 07/23/16 19:57 97.9 94 18 141/83 100 07/23/16 15:27 98.3 90 16 130/85 95 07/23/16 15:00 64 07/23/16 11:24 98.5 90 18 135/84 95 Result Diagram: 07/24/16 0343 07/24/16 0343 Imaging Last Impressions Abdomen/Pelvis CT 07/22/16 0842 Signed Impressions: Service Date/Time: Friday, July 22, 2016 09:29 - CONCLUSION: No acute disease. Royal Monterroso MD Pelvis Ultrasound 07/22/16 0000 Signed Impressions: Service Date/Time: Friday, July 22, 2016 15:46 - CONCLUSION: 16mm right ovarian cyst. Otherwise normal pelvic ultrasound. Royal Monterroso MD Objective Remarks GENERAL: Well nourished patient, sleeping in bed, NAD SKIN: Warm and dry. HEAD: Atraumatic. Normocephalic. EYES: Pupils equal and round. ENT: No nasal bleeding or discharge. NECK: Trachea midline. No JVD. CARDIOVASCULAR: Regular rate and rhythm. RESPIRATORY: No accessory muscle use. Clear to auscultation. Breath sounds equal bilaterally. GASTROINTESTINAL: Abdomen soft, LLQ tenderness, nondistended. Hepatic and splenic margins not palpable. MUSCULOSKELETAL: Extremities without clubbing, cyanosis, or edema. No obvious deformities. NEUROLOGICAL: Awake and alert. Motor grossly within normal limits. Normal speech. PSYCHIATRIC: Appropriate mood and affect; insight and judgment normal. Medications and IVs Current Medications Medications (Trade) Dose Ordered Sig/Tyler Route Start Time Stop Time Status Last Admin (NS Flush) 2 ml UNSCH PRN IV FLUSH 07/22/16 08:45 07/23/16 09:35 (Folate) 1 mg DAILY PO 07/22/16 19:00 07/27/16 18:59 07/23/16 09:35 (Vitamin B1) 100 mg DAILY PO 07/22/16 19:00 07/23/16 09:35 (Theragran M Tab) 1 tab DAILY PO 07/22/16 19:00 07/27/16 18:59 07/23/16 09:35 (Zofran Inj) 4 mg Q6H PRN IV 07/22/16 19:00 07/24/16 02:32 Pantoprazole Sodium 40 mg 40 mg DAILY PO 07/22/16 19:00 07/23/16 09:35 (NS 1000 ml Inj) 1,000 ml @ 125 mls/hr Q8H IV 07/22/16 19:15 07/23/16 20:18 (Romazicon Inj) 0.2 mg Q1M PRN IV PUSH 07/22/16 22:45 (Ativan) 1 mg Q4H PRN PO 07/22/16 22:45 07/22/16 23:07 (Ativan Inj) 1 mg Q4H PRN IV PUSH 07/22/16 22:45 07/23/16 23:30 (Ativan) 2 mg Q2H PRN PO 07/22/16 22:45 (Ativan Inj) 2 mg Q2H PRN IV PUSH 07/22/16 22:45 (Ativan Inj) 2 mg Q1H PRN IV PUSH 07/22/16 22:45 (Ativan Inj) 2 mg Q15M PRN IV PUSH 07/22/16 22:45 (Morphine Inj) 2 mg Q4H PRN IV PUSH 07/22/16 22:45 07/24/16 02:33 (Romazicon Inj) 0.2 mg Q1M PRN IV PUSH 07/23/16 23:15 (Ativan) 1 mg Q4H PRN PO 07/23/16 23:15 (Ativan Inj) 1 mg Q4H PRN IV PUSH 07/23/16 23:15 (Ativan) 2 mg Q2H PRN PO 07/23/16 23:15 (Ativan Inj) 2 mg Q2H PRN IV PUSH 07/23/16 23:15 (Ativan Inj) 2 mg Q1H PRN IV PUSH 07/23/16 23:15 (Ativan Inj) 2 mg Q15M PRN IV PUSH 07/23/16 23:15 Urinary Catheter: No Vascular Central Line Catheter: No A/P Problem List: (1) Abdominal pain ICD Code: R10.9 Status: Acute (2) Hematochezia ICD Code: K92.1 Status: Acute (3) Alcohol abuse ICD Code: F10.10 Status: Chronic Assessment and Plan Ms. Bernal is a 35-year-old female with a known history of alcohol abuse who currently drinks roughly eight beers per day who presented to the ED with complaints of lower abdominal pain and bright red blood in stools x 3 days. Abdominal pain/diarrhea, acute on chronic Abdominal/Pelvis CT showed no acute disease. Pelvis US reviewed by me, 16mm right ovarian cyst, otherwise normal. - Stool studies pending - GI consulted, plan for egd/colonoscopy today Bright red blood in stool: suspect most likely hemorrhoids - Hemoglobin 13.7-->12.2-->11.6 /Hematocrit 40.2-->34.1. - Hemoccult positive in the ER. - Monitor H&H - EGD/colonoscopy pending Tachycardia most likely secondary to dehydration, resolving - Status post 4 L NS bolus in ED. - Monitor heart rate. - continue IVFs. Hypokalemia Labs: potassium 3.1, mag 2.4 -40meq given PO -Trend BMP Alcohol abuse: drinks 8 beers per day. - Continue CIWA protocol - Monitor for withdrawal symptoms - Cont Seizure precautions Elevated TSH: minimally elevated. - recommend outpatient f/up with PCP - consult case management for blue card to f/up with Dr. Washington Asthma: chronic, no wheezing on exam - albuterol nebs prn DVT Prophylaxis: SCDs. Discharge Planning once cleared by GI Attending Statement The exam, history, and the medical decision-making described in the above note were completed with the assistance of the mid-level provider. I reviewed and agree with the findings presented. I attest that I had a [id number] encounter with the patient on the same day, and personally performed and documented my assessment and findings in the medical record. Patient seen after EGD and colonoscopy. She continues to have diarrhea and abdominal pain. But this has been the same. She remains afebrile. gen NAD CV RRR no r/m/g Abd soft. + TTP in LLQ. no pertioneal signs. Chronic abdominal pain diarrhea -Status post EGD and colonoscopy done today on 07/24/2016 showing gastritis and pancolitis. Biopsies were taken. -Per Dr. Holguin to if cultures are negative can start patient on oral prednisone and anusol. also consider Bentyl. Problem Qualifiers (1) Abdominal pain: Qualified Code: R10.9 - Abdominal pain, unspecified location Lucy Santiago July 24, 2016 08:46 Giovanna Ferraro MD July 24, 2016 16:32
[2016-07-24] MEDS ORDERED: MIDAZOLAM HCL 2 MG/2 ML VIAL IV ONE (09:10)
[2016-07-24] MEDS ORDERED: PROPOFOL 200 MG/20 ML AMP IV ONE ×2 (09:30→12:00)
--- NOTE | 2016-07-24 09:45 | GIPROC ---
[facility] [address] [facility]. [facility], [address] EGD PROCEDURE REPORT EXAM DATE: 07/24/2016 PATIENT NAME: Tessy Bernal MR #: [id number] BIRTHDATE: 1980 ATTENDING: Jessika Mack MD ORDER #: [id number] PHOTOGRAPHY AND PRINTS CURATOR: Jorge Kyle and Rosi Cruz STATUS: inpatient INDICATIONS: The patient is a 35 yr old female here for an EGD due to reflux, abdominal pain PROCEDURE PERFORMED: EGD w/ biopsy MEDICATIONS: None and Per Anesthesia. TOPICAL ANESTHETIC: none CONSENT: The patient understands the risks and benefits of the procedure and understands that these risks include, but are not limited to: sedation, allergic reaction, infection, perforation and/or bleeding. Alternative means of evaluation and treatment include, among others: physical exam, x-rays, and/or surgical intervention. The patient elects to proceed with this endoscopic procedure. medical equipment was checked for proper function. Hand hygiene and appropriate measures for infection prevention was taken. After the risks, benefits and alternatives of the procedure were thoroughly explained, Informed consent was verified, confirmed and timeout was successfully executed by the treatment team. The patient was anesthetized with topical anesthesia and the EC-[id number] (Pedi C) endoscope was introduced through the mouth and advanced to the second portion of the duodenum. Retroflexed views revealed a hiatal hernia The gastroscope was then slowly withdrawn and removed. Gastritis antrum-biopsy dodenum normal-biopsy irregular z line-biopsy. ADVERSE EVENTS: There were no complications. IMPRESSIONS: 1. Gastritis antrum-biopsy dodenum normal-biopsy irregular z line-biopsy 2. Retroflexed views revealed a hiatal hernia RECOMMENDATIONS: 1. Await biopsy results. Biopsy results will not be ready for 7-10 days. If you don't hear from us in two weeks, call our office for biopsy results. 2. Continue PPI PATIENT CONDITION: stable DISPOSITION: Inpatient REPEAT EXAM: EGD pending biopsy results Jessika Mack MD eSigned: Jessika Mack MD 07/24/2016 9:45 AM cc: PATIENT NAME: Tessy Bernal MR#: [id number]
--- NOTE | 2016-07-24 09:51 | GIPROC ---
[facility] [address] [facility]. [facility], [address] COLONOSCOPY PROCEDURE REPORT EXAM DATE: 07/24/2016 PATIENT NAME: Tessy Bernal MR #: [id number] BIRTHDATE: 1980 ENDOSCOPIST: Jessika Mack MD ORDER #: [id number] [employer]WORK [employer]: Jorge Kyle and Rosi Cruz STATUS: inpatient INDICATIONS: The patient is a 35 yr old female here for a colonoscopy due to abdominal pain, rectal bleeding PROCEDURE PERFORMED: Colonoscopy with biopsy MEDICATIONS: None and Per Anesthesia. PREP QUALITY: fair PREP TYPE:Magnesium Citrate ESTIMATED BLOOD LOSS: None CONSENT: The patient understands the risks and benefits of the procedure and understands that these risks include, but are not limited to: sedation, allergic reaction, infection, perforation and/or bleeding. Alternative means of evaluation and treatment include, among others: physical exam, x-rays, and/or surgical intervention. The patient elects to proceed with this endoscopic procedure. medical equipment was checked for proper function. Hand hygiene and appropriate measures for infection prevention was taken. After the risks, benefits and alternatives of the procedure were thoroughly explained, Informed consent was verified, confirmed and timeout was successfully executed by the treatment team. A digital exam revealed hemorrhoids The Pentax EC-[id number] endoscope was introduced through the anus and advanced to the terminal ileum which was intubated for a short distance. The instrument was then slowly withdrawn as the colon was fully examined. COLON FINDINGS: Pancolitis random biopsies from terminal ileum, cecum, ascending, transverse, descending, sigmoid, rectum terminal ileum normal. Retroflexed views revealed internal hemorrhoids and Retroflexed views revealed small internal hemorrhoids The scope was then completely withdrawn from the patient and the procedure terminated. PROCEDURE WITHDRAWAL TIME:10minutes ADVERSE EVENTS: There were no complications. IMPRESSIONS: 1. Pancolitis random biopsies from terminal ileum, cecum, ascending, transverse, descending, sigmoid, rectum terminal ileum normal 2. Retroflexed views revealed internal hemorrhoids 3. Retroflexed views revealed small internal hemorrhoids 4. Revealed hemorrhoids RECOMMENDATIONS: 1. Await biopsy results. Biopsy results will not be ready for 7-10 days. If you don't hear from us in two weeks, call our office for results. 2. Probiotics from any [employer] or [employer] store 3. Yearly rectal exams 4. Stool studies if negative for infection start prednisone po asacol 800 mg times 2 po tid fu office if discharge bentyl 10 mg po tid RECALL: Colonoscopy, pending biopsy results Jessika Mack MD eSigned: Jessika Mack MD 07/24/2016 9:50 AM cc: PATIENT NAME: Tessy Bernal MR#: [id number]
[2016-07-24] MEDS: FOLIC ACID 1 MG TAB PO SCH (11:31)
[2016-07-24] MEDS: MULTIVITAMINS/MINERALS THERAPEUTIC TAB PO SCH (11:31)
[2016-07-24] MEDS: THIAMINE HCL 100 MG TAB PO SCH (11:31)
[2016-07-24] MEDS: PANTOPRAZOLE SOD 40 MG DELAYED RELEASE TAB PO SCH (11:31)
[2016-07-24] MEDS: DICYCLOMINE HCL 20 MG TAB PO SCH ×2 (12:10→18:13)
[2016-07-24] MEDS: MESALAMINE HD 800 MG DELAYED RELEASE TAB PO SCH ×2 (12:10→22:44)
[2016-07-24] MEDS ORDERED: DICYCLOMINE HCL 20 MG TAB PO SCH (13:00)
[2016-07-24] MEDS: traMADol HCL 50 MG TAB PO PRN (18:13)
[2016-07-24] MEDS ORDERED: LORazepam 0.5 MG TAB PO ONE (23:15)
[2016-07-25 02:08] LABS: C. DIFF EPI 027 PRESUMPTIVE NEGATIVE (NEGATIVE); C. DIFF TOXIN PCR NEGATIVE (NEGATIVE)
[2016-07-25] MEDS: traMADol HCL 50 MG TAB PO PRN ×2 (02:37→11:23)
[2016-07-25 05:18] VITALS: BP 115/56; PULSE 79; RESP 18; TEMP 98.4; O2SAT 94
[2016-07-25] MEDS: SODIUM CHLOR 0.9% 1000 ML INJ 1,000 ML IV SCH (05:52)
[2016-07-25] MEDS: MESALAMINE HD 800 MG DELAYED RELEASE TAB PO SCH ×2 (05:53→11:23)
[2016-07-25 07:31] LABS: BICARBONATE 29.2 MEQ/L (21.0-32.0); POTASSIUM 3.3 MEQ/L (3.5-5.1)
[2016-07-25 07:35] VITALS: BP 113/59; PULSE 82; RESP 14; TEMP 97.7; O2SAT 95
[2016-07-25 08:00] VITALS: PULSE 77
[2016-07-25] MEDS ORDERED: ULTR50TA5 PO (08:18)
[2016-07-25] MEDS: PANTOPRAZOLE SOD 40 MG DELAYED RELEASE TAB PO SCH (08:58)
[2016-07-25] MEDS: MULTIVITAMINS/MINERALS THERAPEUTIC TAB PO SCH (08:58)
[2016-07-25] MEDS: DICYCLOMINE HCL 20 MG TAB PO SCH ×2 (08:58→11:23)
[2016-07-25] MEDS: FOLIC ACID 1 MG TAB PO SCH (08:58)
[2016-07-25] MEDS: THIAMINE HCL 100 MG TAB PO SCH (08:58)
[2016-07-25] MEDS ORDERED: MESA1TAB2 PO (08:59)
[2016-07-25] MEDS ORDERED: PRED10 PO (08:59)
[2016-07-25] MEDS ORDERED: OMEP40CA2 PO (08:59)
[2016-07-25] MEDS ORDERED: BENT20TA PO (08:59)
[2016-07-25] MEDS ORDERED: PRED20 PO (08:59)
[2016-07-25] MEDS: SODIUM CHLORIDE 0.9% FLUSH 10 ML FLUSH IV FLUSH PRN (08:59)
[2016-07-25] MEDS ORDERED: methylPREDNISolone SOD SUCC 125 MG/2 ML VIAL IV PUSH SCH (09:00)
[2016-07-25] MEDS ORDERED: POTASSIUM CHLORIDE 20 MEQ CONTROLLED RELEASE TAB PO ONE (09:00)
--- NOTE | 2016-07-25 09:08 | HHI.GIFU ---
Subjective Remarks Resting in bed. States she is feeling better. Still with some abdominal cramping- states the tramadol works better than morphine for pain. No n/v. no bm. (Viri Tanner) Objective Vitals I&O Vital Signs Date Time Temp Pulse Resp B/P Pulse Ox O2 Delivery O2 Flow Rate FiO2 07/25/16 07:35 97.7 82 14 113/59 95 07/25/16 05:18 98.4 79 18 115/56 94 07/25/16 03:40 20 07/24/16 23:17 98.0 98 21 189/86 98 07/24/16 20:50 114 07/24/16 20:33 98.4 104 18 141/87 100 07/24/16 15:41 98.7 94 18 133/75 96 07/24/16 15:00 101 07/24/16 11:26 97.9 90 18 128/74 96 07/24/16 09:57 91 18 141/72 100 07/24/16 09:47 94 18 145/97 100 07/24/16 09:37 98.1 95 18 131/61 100 I/O 07/24/16 07/24/16 07/24/16 07/25/16 07/25/16 07/25/16 07:00 15:00 23:00 07:00 15:00 23:00 Intake Total 300 ml 1700 ml Output Total 1200 ml Balance 300 ml 500 ml Intake Oral 750 ml IV Total 950 ml Other 300 ml Output Urine Total 1200 ml Laboratory Laboratory Tests Test 07/24/16 07/25/16 21:51 06:22 Stool C. difficile Toxin (PCR) NEGATIVE Stl C. difficile Toxin PRESUMPTIVE Epiderm 027 NEGATIVE Sodium Level 138 Potassium Level 3.3 Chloride Level 103 Carbon Dioxide Level 29.2 Anion Gap 6 Blood Urea Nitrogen 2 Creatinine 0.62 Estimat Glomerular Filtration 111 Rate Random Glucose 89 Calcium Level 7.9 Date/Time Procedure Status Source Growth 07/24/16 21:51 Cryptosporidium Exam Received Stool Stool Pending 07/24/16 21:51 Giardia Antigen (SONDRA) Received Stool Stool Pending 07/24/16 21:51 Received Stool Stool Pending 07/23/16 13:25 Giardia Antigen (SONDRA) Received Stool Stool Pending 07/23/16 13:25 - Final Complete Stool Stool NO ENTERIC PATHOGENS DETECTED BY PCR... Imaging Last Impressions Abdomen/Pelvis CT 07/22/16 0842 Signed Impressions: Service Date/Time: Friday, July 22, 2016 09:29 - CONCLUSION: No acute disease. Royal Monterroso MD Pelvis Ultrasound 07/22/16 0000 Signed Impressions: Service Date/Time: Friday, July 22, 2016 15:46 - CONCLUSION: 16mm right ovarian cyst. Otherwise normal pelvic ultrasound. Royal Monterroso MD Physical Exam HEENT: Normocephalic; atraumatic; no jaundice. CHEST: CTA CARDIAC: RRR ABDOMEN: Soft, nondistended, mild tenderness; no hepatosplenomegaly; bowel sounds are present in all four quadrants. EXTREMITIES: No clubbing, cyanosis, or edema. SKIN: Normal; no rash; no jaundice. CLOTH NEUTRALIZER: No focal deficits; alert and oriented times three. (Viri Tanner) Assessment and Plan Plan ASSESSMENT - Acute pancolitis. Abdomen/Pelvis CT (07/22/16)-----> No acute disease. S/P EGD/ Colonoscopy (07/24/16)----> 1. Gastritis antrum-biopsy duodenum normal-biopsy, irregular z line-biopsy 2. Retroflexed views revealed a hiatal hernia, 1. Pancolitis random biopsies from terminal ileum, cecum, ascending, transverse, descending, sigmoid, rectum terminal ileum normal 2. Retroflexed views revealed internal hemorrhoids 3. Retroflexed views revealed small internal hemorrhoids 4. Revealed hemorrhoids. Pathology pending. CDiff neg. Clinically improved, mild cramping- controlled. Getting Solumedrol 40mg IV today at 9am, then will start Prednisone taper tomorrow am- 40mg po x 10 days, then 30mg po x 10 days, then 20mg po x 10 days , then 10mg po x 10 days. Asacol HD. - BRBPR. Improved. Secondary to colitis. - Abdominal pain. CT unremarkable. EGD/Colonoscopy as above, likely related to colitis. Improved today. - Diarrhea. Improved. PLAN: - Okay to d/c home from GI standpoint today - FU BALJ[facility]ER 2 weeks - Cont. Asacol HD - Prednisone taper starting 512 am- 40mg po x 10 days, then 30mg po x 10 days, then 20mg po x 10 days, then 10mg po x 10 days. - This note is written on behalf of Dr. Mack. (Viri Tanner) Viri Tanner July 25, 2016 09:08 Jessika Mack MD August 03, 2016 08:35
--- NOTE | 2016-07-25 09:32 | HHI.DS ---
Discharge Summary Admission Date July 22, 2016 at 17:59 Discharge Date: July 25, 2016 Admitting Diagnosis Lower GI bleed, persistent tachcardia (1) Abdominal pain ICD Code: R10.9 Diagnosis: Principal (2) Hematochezia ICD Code: K92.1 Diagnosis: Secondary (3) Alcohol abuse ICD Code: F10.10 Diagnosis: Secondary Procedures EGD 07/24/16 Colonoscopy 07/24/16 Brief History - From Admission Ms. Bernal is a 35-year-old female with a known history of alcohol abuse who currently drinks roughly eight beers per day who presented to the ED with complaints of lower abdominal pain and bright red blood in stools x 3 days. Patient states that she noticed her pain has been an 8/10 on pain scale, sharp, intermittent, initially started in her right lower quadrant which eventually radiated to her back. Patient does complain of diarrhea for several weeks now. Also states that her pain has been impeding her appetite, making her nauseous with associated occasional vomiting. Patient states her last missed period was two weeks ago. She does drink a significant amount of alcohol, at least eight beers per day. Denies any recent fever, cough, shortness of breath, chest pain or dizziness. CBC/BMP: 07/24/16 0343 07/25/16 0622 Significant Findings Laboratory Tests Test 07/22/16 07/24/16 07/25/16 17:30 03:43 06:22 Thyroid Stimulating Hormone 4.800 uIU/ML 3rd Gen (0.358-3.740) Red Blood Count 3.62 MIL/MM3 (4.00-5.30) Hematocrit 34.1 % (35.0-46.0) Neutrophils (%) (Auto) 73.0 % (16.0-70.0) Monocytes (%) (Auto) 11.4 % (0.0-8.0) Monocytes # (Auto) 1.0 TH/MM3 (0-0.9) Potassium Level 3.1 MEQ/L 3.3 MEQ/L (3.5-5.1) (3.5-5.1) Blood Urea Nitrogen 2 MG/DL (7-18) 2 MG/DL (7-18) Calcium Level 8.0 MG/DL 7.9 MG/DL (8.5-10.1) (8.5-10.1) Imaging Last Impressions Abdomen/Pelvis CT 07/22/16 0842 Signed Impressions: Service Date/Time: Friday, July 22, 2016 09:29 - CONCLUSION: No acute disease. Royal Monterroso MD Pelvis Ultrasound 07/22/16 0000 Signed Impressions: Service Date/Time: Friday, July 22, 2016 15:46 - CONCLUSION: 16mm right ovarian cyst. Otherwise normal pelvic ultrasound. Royal Monterroso MD PE at Discharge GENERAL: Well nourished patient, sleeping in bed, NAD SKIN: Warm and dry. HEAD: Atraumatic. Normocephalic. EYES: Pupils equal and round. ENT: No nasal bleeding or discharge. NECK: Trachea midline. No JVD. CARDIOVASCULAR: Regular rate and rhythm. RESPIRATORY: No accessory muscle use. Clear to auscultation. Breath sounds equal bilaterally. GASTROINTESTINAL: Abdomen soft, LLQ tenderness, nondistended. Hepatic and splenic margins not palpable. MUSCULOSKELETAL: Extremities without clubbing, cyanosis, or edema. No obvious deformities. NEUROLOGICAL: Awake and alert. Motor grossly within normal limits. Normal speech. PSYCHIATRIC: Appropriate mood and affect; insight and judgment normal. Pt update on day of discharge Patient seen and examined today, sitting up about to eat breakfast. She states she still has some cramping abdominal pain, but it is relieved with pain medications. She was able to tolerate dinner last night. She denies any nausea, vomiting, chest pain or sob. She is stable for discharge with GI medications, taper prednisone, and pain medications. Hospital Course Patient admitted for abdominal pain, nausea and diarrhea. Patient underwent EGD and colonoscopy with Dr. Mack. EGD showed gastritis and GI recommended PPI / Colonoscopy shows pancolitis and internal hemorrhoids, biopsies were taken from terminal ileum, cecum, ascending, transverse, descending, sigmoid and rectum. Per GI patient was started on Asacol, Bentyl and prednisone. Patient did have red blood in her stool, hemoglobin remained stable throughout admission. Patient was able to tolerate soft foods with only mild cramping. Prior to discharge patient was given one dose of IV steroids, and will be sent home on a prednisone taper. Patient is stable for discharge and will follow up with GI in 2 weeks for biopsy results. Pt Condition on Discharge: Stable Discharge Disposition: Discharge Home Discharge Time: > 30 minutes Discharge Instructions DIET: Follow Instructions for: As Tolerated, No Restrictions Activities you can perform: Regular-No Restrictions Follow up Referrals: Gastroenterology - 2 Weeks @ [facility] PCP Follow-up - 1 Week New Medications: Omeprazole (Omeprazole) 40 Mg Cap 40 MG PO DAILY gastritis #30 Ref 0 CAP Dicyclomine (Bentyl) 20 Mg Tab 20 MG PO TID spasms #[address] (Mesalamine DR) 800 Mg Tab 1600 MG PO Q8HR colitis #90 TAB Prednisone (Prednisone) 20 Mg Tab 40 MG PO DAILY Take Daily until 08/05/16 Inflammation #10 TAB Prednisone (Prednisone) 10 Mg Tab 30 MG PO DAILY Take from 08/06/16 until 08/15/16 Inflammation #10 TAB Prednisone (Prednisone) 20 Mg Tab 20 MG PO DAILY Take from 08/16/16 until 08/25/16 Inflammation #10 TAB Prednisone (Prednisone) 10 Mg Tab 10 MG PO DAILY Take daily from 08/26/16 until 09/04/16 Inflammation #10 TAB Tramadol (Ultram) 50 Mg Tab 50 MG PO Q8H PRN PAIN SCALE 4 TO 10 #20 Ref 0 TAB Continued Medications: Acetaminophen (Acetaminophen Extra Strength) 500 Mg Tab 500 MG PO Q6H PRN PAIN SCALE 1 TO 4 #20 Ref 0 TAB Albuterol 8.5 GM Inh (Proair Hfa 8.5 GM Inh) 90 Mcg/Act Aer 2 PUFF INH Q4-6H 108 mcg/actuation PRN SHORTNESS OF BREATH #1 Ref 0 INHALER Albuterol 8.5 GM Inh (Proair Hfa 8.5 GM Inh) 90 Mcg/Act Aer 1 PUFF INH Q4H 108 mcg/actuation PRN SHORTNESS OF BREATH #1 Ref 0 INHALER Omeprazole (Omeprazole) 40 Mg Cap 40 MG PO DAILY #7 Ref 0 CAP Ondansetron Odt (Zofran Odt) 4 Mg Tab 4 MG SL Q8HR PRN Nausea/Vomiting #6 Ref 0 TAB Additional Information The exam, history, and the medical decision-making described in the above note were completed with the assistance of the mid-level provider. I reviewed and agree with the findings presented. I attest that I had a [id number] encounter with the patient on the same day, and personally performed and documented my assessment and findings in the medical record. Patient had a relatively uncomplicated course. She was admitted due to chronic abdominal pain and diarrhea causing tachycardia. Patient was given aggressive fluid resuscitation in which it improved her tachycardia. GI was consulted in which patient had a EGD and colonoscopy done. Colonoscopy showed pancolitis and EGD showed gastritis. Patient was put on an mesalamine DR and prednisone. She was also put on Bentyl which improved abdominal pain. Lucy Santiago July 25, 2016 09:32 Giovanna Ferraro MD July 25, 2016 16:14
[2016-07-25 12:18] VITALS: BP 135/78; PULSE 83; RESP 18; TEMP 98.4; O2SAT 97
[2016-07-26] MEDS ORDERED: predniSONE 20 MG TAB PO SCH (09:00)
[2016-08-05] MEDS ORDERED: predniSONE 10 MG TAB PO SCH (09:00)
[2016-08-15] MEDS ORDERED: predniSONE 20 MG TAB PO SCH (09:00)
[2016-08-25] MEDS ORDERED: predniSONE 10 MG TAB PO SCH (09:00)
== END 2016-07-25 13:55 | disposition home or self-care (01) ==
LOC: NEPC 08:09 → NEDA 17:59 → NEPFCDU 21:54
PROVIDERS: ADMIT Family Medicine; ATTEND Family Medicine
DX: K29.50 Unspecified chronic gastritis without bleeding (principal); F10.10 Alcohol abuse, uncomplicated; K51.90 Ulcerative colitis, unspecified, without complications; K62.5 Hemorrhage of anus and rectum; K44.9 Diaphragmatic hernia without obstruction or gangrene; R00.0 Tachycardia, unspecified; K62.89 Other specified diseases of anus and rectum; K64.8 Other hemorrhoids; R94.6 Abnormal results of thyroid function studies; E87.6 Hypokalemia; J45.909 Unspecified asthma, uncomplicated; Z79.51 Long term (current) use of inhaled steroids
CPT/HCPCS: 43239; 45380; 74177; 76856; 76937; 80048; 80053; 81001; 83690; 83735; 84443; 84703; 85018; 85025; 85610; 85730; 86850; 86900; 86901; 87210; 87328; 87329; 87491; 87493; 87506; 87591; 88305; 88312; 96361; 96374; 96375; 96376; 99285; C9113; G0378; J2060; J2250; J2270; J2405; J2930; J3010; J7030; Q9967

== ENCOUNTER 2016-11-09 11:58 | Emergency (ER) | payer SELFPAY ==
[~2016-11-09] VITALS: Ht 175.3 cm; Wt 86.0 kg
[~2016-11-09 11:58] MED LIST: ACET500T36 PO; ALBUAER3 INH; BENT20TA PO; MESA1TAB2 PO; OMEP40CA2 PO; PRED10 PO; PRED20 PO; ULTR50TA5 PO; ZOFR4TAB3 SL
[2016-11-09 12:01] VITALS: BP 163/94; PULSE 85; RESP 20; TEMP 98.1; O2SAT 98
[2016-11-09] MEDS ORDERED: ONDANSETRON HCL 4 MG/2 ML VIAL IV PUSH ONE (14:00)
[2016-11-09] MEDS ORDERED: methylPREDNISolone SOD SUCC 125 MG/2 ML VIAL IV PUSH ONE (14:00)
[2016-11-09] MEDS ORDERED: MORPHINE SULFATE 4 MG/ML INJ IV PUSH ONE (14:00)
[2016-11-09] MEDS ORDERED: SODIUM CHLOR 0.9% 1000 ML INJ 1,000 ML IV ONE (14:00)
[2016-11-09 14:13] LABS: AUTOMATED NEUTROPHIL # 5.9 TH/MM3 (1.8-7.7); BASOPHIL % 0.4 % (0.0-2.0); EOSINOPHIL # 0.1 TH/MM3 (0-0.4); EOSINOPHIL % 0.8 % (0.0-4.0); HEMATOCRIT 46.1 % (35.0-46.0); HEMO FLAGS DIFF FINAL; LYMPH % 19.4 % (9.0-44.0); LYMPHOCYTE # 1.6 TH/MM3 (1.0-4.8); MEAN CELL VOLUME 97.7 FL (80.0-100.0); MEAN CORPUSCULAR HEMOGLOBIN 32.7 PG (27.0-34.0); MEAN CORPUSCULAR HGB CONC 33.5 % (32.0-36.0); MONO % 7.5 % (0.0-8.0); NEUT % 71.9 % (16.0-70.0); PLATELET COUNT 291 TH/MM3 (150-450); RED BLOOD COUNT 4.72 MIL/MM3 (4.00-5.30); RED CELL DISTRIBUTION WIDTH 12.9 % (11.6-17.2); WHITE BLOOD COUNT 8.2 TH/MM3 (4.0-11.0)
[2016-11-09 14:37] LABS: ALT (GPT) 31 U/L (10-53); ANION GAP 13 MEQ/L (5-15); AST (GOT) 27 U/L (15-37); BICARBONATE 24.5 MEQ/L (21.0-32.0); BLOOD UREA NITROGEN 12 MG/DL (7-18); CHLORIDE 101 MEQ/L (98-107); GLOMERULAR FILTRATION RATE 90 ML/MIN (>89); POTASSIUM 3.5 MEQ/L (3.5-5.1); SODIUM (NA) 138 MEQ/L (136-145)
[2016-11-09 14:40] LABS: ALKALINE PHOSPHATASE 87 U/L (45-117); TOTAL BILIRUBIN ADULT 0.3 MG/DL (0.2-1.0)
[2016-11-09] MEDS ORDERED: ZOFR4TAB3 SL (15:17)
[2016-11-09] MEDS ORDERED: TRAM50TA PO (15:17)
[2016-11-09] MEDS ORDERED: PRED20 PO (15:17)
--- NOTE | 2016-11-09 15:18 | PD ---
HPI Chief Complaint: GI Complaint Time Seen by Provider: 13:35 Travel History International Travel<30 days: No Contact w/Intl Traveler<30days: No Traveled to known affect area: No History of Present Illness HPI This is a 36-year-old female who was recently diagnosed in July with ulcerative colitis who presents to the department with 4 days of increasing lower abdominal cramping, constant, moderate severity associated with blood in her stool and vomiting. She has had some blood streaks in her vomit which have been dark red. She says she is not felt well ever since her diagnosis but her symptoms seem to have flared up worse over the past several days to the point where she couldn't work today. She has followed up with gastroenterology with Dr. Arndt's office 1 month ago. She is on 2 medications but she's not sure what the names are. She was on a long tapering dose of prednisone which ended one month ago. She did feel a little bit better on the prednisone. PFSH Past Medical History Hx Anticoagulant Therapy: No Asthma: Yes Blood Disorders: No Cancer: No Cardiovascular Problems: No Chemotherapy: No COPD: No Cerebrovascular Accident: No Diabetes: No Endocrine: No Gastrointestinal Disorders: No Genitourinary: No Immune Disorder: No Implanted Vascular Access Dvce: No Musculoskeletal: No Neurologic: No Psychiatric: No Reproductive: No Respiratory: Yes (Asthma) Sleep Apnea: No ?: Not LMP: LMP currently on it Past Surgical History Abdominal Surgery: No Other Surgery: No Social History Alcohol Use: Yes (daily) Tobacco Use: No Substance Use: No Allergies-Medications (Allergen,Severity, Reaction): Coded Allergies: No Known Allergies (Unverified , 07/22/16) Reported Meds & Prescriptions Reported Meds & Active Scripts Active Omeprazole 40 Mg Cap 40 Mg PO DAILY Prednisone 10 Mg Tab 10 Mg PO DAILY Take daily from 08/26/16 until 09/04/16 Prednisone 20 Mg Tab 20 Mg PO DAILY Take from 08/16/16 until 08/25/16 Prednisone 10 Mg Tab 30 Mg PO DAILY Take from 08/06/16 until 08/15/16 Prednisone 20 Mg Tab 40 Mg PO DAILY Take Daily until 08/05/[address] (Mesalamine) 800 Mg Tab 1,600 Mg PO Q8HR Bentyl (Dicyclomine HCl) 20 Mg Tab 20 Mg PO TID Ultram (Tramadol HCl) 50 Mg Tab 50 Mg PO Q8H PRN Zofran Odt (Ondansetron Odt) 4 Mg Tab 4 Mg SL Q8HR PRN Review of Systems Except as stated in HPI: all other systems reviewed are Neg Physical Exam Narrative GENERAL:Well appearing, no acute distress SKIN: Focused skin assessment warm and dry. HEAD: Atraumatic. Normocephalic. EYES: Pupils equal and round. No injection or drainage. ENT: Moist mucous membranes NECK: Trachea midline. CARDIOVASCULAR: Regular rate and rhythm. No murmur appreciated. RESPIRATORY: Clear to auscultation. Breath sounds equal bilaterally. GASTROINTESTINAL: Abdomen soft, tender to palpation in the lower abdomen with no rebound or guarding. MUSCULOSKELETAL: No obvious deformities. NEUROLOGICAL: Awake and alert. No obvious cranial nerve deficits. Moving all extremities. PSYCHIATRIC: Appropriate mood and affect; insight and judgment normal. Data Data Last Documented VS Vital Signs Date Time Temp Pulse Resp B/P (MAP) Pulse Ox O2 Delivery O2 Flow Rate FiO2 11/09/16 12:01 98.1 85 20 163/94 (117) 98 Room Air Orders Orders Complete Blood Count With Diff (11/09/16 13:54) Comprehensive Metabolic Panel (11/09/16 13:54) ^ Insert Iv (11/09/16 13:54) Ondansetron Inj (Zofran Inj) (11/09/16 14:00) Morphine Inj (Morphine Inj) (11/09/16 14:00) Sodium Chlor 0.9% 1000 Ml Inj (Ns 1000 M (11/09/16 14:00) Methylprednisolone So Succ Inj (Solumedr (11/09/16 14:00) Lipase (11/09/16 15:04) Labs Laboratory Tests Test 11/09/16 14:00 White Blood Count 8.2 TH/MM3 Red Blood Count 4.72 MIL/MM3 Hemoglobin 15.4 GM/DL Hematocrit 46.1 % Mean Corpuscular Volume 97.7 FL Mean Corpuscular Hemoglobin 32.7 PG Mean Corpuscular Hemoglobin Concent 33.5 % Red Cell Distribution Width 12.9 % Platelet Count 291 TH/MM3 Mean Platelet Volume 8.4 FL Neutrophils (%) (Auto) 71.9 % Lymphocytes (%) (Auto) 19.4 % Monocytes (%) (Auto) 7.5 % Eosinophils (%) (Auto) 0.8 % Basophils (%) (Auto) 0.4 % Neutrophils # (Auto) 5.9 TH/MM3 Lymphocytes # (Auto) 1.6 TH/MM3 Monocytes # (Auto) 0.6 TH/MM3 Eosinophils # (Auto) 0.1 TH/MM3 Basophils # (Auto) 0.0 TH/MM3 CBC Comment DIFF FINAL Differential Comment Blood Urea Nitrogen 12 MG/DL Creatinine 0.74 MG/DL Random Glucose 82 MG/DL Total Protein 8.6 GM/DL Albumin 4.0 GM/DL Calcium Level 9.2 MG/DL Alkaline Phosphatase 87 U/L Aspartate Amino Transf (AST/SGOT) 27 U/L Alanine Aminotransferase (ALT/SGPT) 31 U/L Total Bilirubin 0.3 MG/DL Sodium Level 138 MEQ/L Potassium Level 3.5 MEQ/L Chloride Level 101 MEQ/L Carbon Dioxide Level 24.5 MEQ/L Anion Gap 13 MEQ/L Estimat Glomerular Filtration Rate 90 ML/MIN MDM Medical Decision Making Medical Screen Exam Complete: Yes Emergency Medical Condition: Yes Interpretation(s) Afebrile, no tachycardia, hypertensive No leukocytosis Some hemoconcentration Electrolytes are reassuring Differential Diagnosis Ulcerative colitis, dehydration, anemia Narrative Course This is a 36-year-old female who presents to the emergency department with lower abdominal discomfort and vomiting as well as blood in her stools. She has a history of ulcerative colitis. She is placed in a monitor and an IV was established. Labs are obtained which were all reassuring. She appears quite well area don't think she requires CT imaging at this time. She likely has an ulcerative colitis flare. I spoke to Dr. Ramirez who was on-call for gastroenterology. He agreed that if the patient appears well she can be discharged home on prednisone and follow-up with gastroenterology as an outpatient in the office. I discussed the patient's options and she is amenable to trying an outpatient course of prednisone and symptomatic control. If she feels worse she'll return to the emergency department at which time we' ll consider imaging and admission. Diagnosis Primary Impression: Ulcerative colitis Qualified Codes: K51.911 - Ulcerative colitis, unspecified with rectal bleeding Referrals: Jessika Mack MD Patient Instructions: General Instructions Additional Instructions: If you develop severe or worsening abdominal pain, fever>100.4, persistent vomiting or inability to eat or drink return to the emergency department immediately. Follow-up with gastroenterology this week. Med/Other Pt SpecificInfo: Prescription(s) given Scripts Prednisone (Prednisone) 20 Mg Tab 40 MG PO DAILY for 10 Days, TAB 0 Refills Prov: Jackie Miranda MD 11/09/16 Tramadol (Tramadol) 50 Mg Tab 50 MG PO Q6H Y for PAIN, #14 TAB 0 Refills Prov: Jackie Miranda MD 11/09/16 Ondansetron Odt (Zofran Odt) 4 Mg Tab 4 MG SL Q6HR Y for Nausea/Vomiting, #15 TAB 0 Refills Prov: Jackie Miranda MD 11/09/16 Disposition: 01 DISCHARGE HOME Condition: Stable Jackie Miranda MD Nov 09, 2016 15:18
== END 2016-11-09 15:33 | disposition home or self-care (01) ==
LOC: NEPD 11:58
DX: K51.911 Ulcerative colitis, unspecified with rectal bleeding (principal)
CPT/HCPCS: 80053; 83690; 85025; 96361; 96374; 96375; 99284; J2270; J2405; J2930; J7030

== ENCOUNTER 2017-02-12 18:14 | Emergency (ER) | payer SELFPAY ==
[~2017-02-12] VITALS: Ht 175.3 cm; Wt 84.1 kg
[~2017-02-12 18:14] MED LIST changes: -ACET500T36 PO; -ALBUAER3 INH; -BENT20TA PO; -MESA1TAB2 PO; -OMEP40CA2 PO; -PRED10 PO; +TRAM50TA PO; -ULTR50TA5 PO
[2017-02-12 18:15] VITALS: BP 174/114; PULSE 100; RESP 18; TEMP 99.3; O2SAT 99
[2017-02-12 19:28] LABS: BASOPHIL # 0.1 TH/MM3 (0-0.2); BASOPHIL % 0.5 % (0.0-2.0); EOSINOPHIL # 0.1 TH/MM3 (0-0.4); EOSINOPHIL % 1.1 % (0.0-4.0); HEMATOCRIT 45.2 % (35.0-46.0); HEMO FLAGS DIFF FINAL; LYMPH % 15.1 % (9.0-44.0); LYMPHOCYTE # 1.7 TH/MM3 (1.0-4.8); MEAN CELL VOLUME 97.1 FL (80.0-100.0); MEAN CORPUSCULAR HEMOGLOBIN 33.8 PG (27.0-34.0); MEAN CORPUSCULAR HGB CONC 34.8 % (32.0-36.0); MONO % 10.4 % (0.0-8.0); NEUT % 72.9 % (16.0-70.0); PLATELET COUNT 306 TH/MM3 (150-450); RED BLOOD COUNT 4.65 MIL/MM3 (4.00-5.30); RED CELL DISTRIBUTION WIDTH 12.4 % (11.6-17.2)
[2017-02-12 19:30] LABS: INTERNATIONAL NORMALIZED RATIO 0.9 RATIO; PROTHROMBIN TIME - PATIENT 10.1 SEC (9.8-11.6)
[2017-02-12 19:35] LABS: BLOOD, URINE SMALL (NEG); COMMENT (UR) CULT NOT INDICATED; CULTURE IF INDICATED CULT NOT INDICATED; GLUCOSE,URINE NEG (NEG); HYALINE CAST, URINE 3 /lpf (RARE); KETONE, URINE NEG (NEG); MUCUS URINE FEW /lpf (OCC); NITRITE,URINE NEG (NEG); PH, URINE 5.5 (5.0-8.5); SQUAMOUS EPITHELIAL CELL URINE 7 /hpf (0-5); URINE COLOR YELLOW (YELLW/STRAW)
[2017-02-12 19:50] LABS: ALT (GPT) 35 U/L (10-53)
[2017-02-12 19:54] LABS: ALKALINE PHOSPHATASE 112 U/L (45-117); TOTAL BILIRUBIN ADULT 0.4 MG/DL (0.2-1.0)
[2017-02-12 20:09] LABS: ANION GAP 10 MEQ/L (5-15); AST (GOT) 38 U/L (15-37); BICARBONATE 22.7 MEQ/L (21.0-32.0); BLOOD UREA NITROGEN 10 MG/DL (7-18); CHLORIDE 102 MEQ/L (98-107); GLOMERULAR FILTRATION RATE 77 ML/MIN (>89); POTASSIUM 3.7 MEQ/L (3.5-5.1); SODIUM (NA) 135 MEQ/L (136-145)
[2017-02-12] MEDS ORDERED: DICY10CA12 PO (20:48)
[2017-02-12] MEDS ORDERED: BALS750C PO (20:48)
--- NOTE | 2017-02-12 21:25 | PD ---
HPI Chief Complaint: GI Complaint Time Seen by Provider: 21:14 Travel History International Travel<30 days: No Contact w/Intl Traveler<30days: No Traveled to known affect area: No History of Present Illness HPI 36yo F with PMH of ulcerative colitis presents to the ED with c/o lower abdominal pain since yesterday. Associated with nausea and vomiting as well as bloody diarrhea. Said she was in so much pain, she blacked out for a second at work today but her boss caught her so she did not hit her head. Said had fever today. Denies any chest pain, sob, vaginal bleeding or discharge. Said pain is constant and radiates from lower abdomen in periumbilical region. Pt follows with Dr. Mack. [facility] Past Medical History Hx Anticoagulant Therapy: No Asthma: Yes Blood Disorders: No Cancer: No Cardiovascular Problems: No Chemotherapy: No COPD: No Cerebrovascular Accident: No Diabetes: No Endocrine: No Gastrointestinal Disorders: No Genitourinary: No Immune Disorder: No Implanted Vascular Access Dvce: No Musculoskeletal: No Neurologic: No Psychiatric: No Reproductive: No Respiratory: Yes (Asthma) Sleep Apnea: No ?: Not LMP: 01/13/2017 Past Surgical History Abdominal Surgery: No Other Surgery: No Social History Alcohol Use: Yes (daily) Tobacco Use: No Substance Use: No Allergies-Medications (Allergen,Severity, Reaction): Coded Allergies: No Known Allergies (Unverified Adverse Reaction, Unknown, 02/12/17) Reported Meds & Prescriptions Reported Meds & Active Scripts Active Hydrocodone-Acetamin 5-325 mg (Hydrocodone/Acetaminophen) 5 Mg-325 Mg Tablet 1 Tab PO Q6HR Prednisone 20 Mg Tab 40 Mg PO DAILY 10 Days Zofran Odt (Ondansetron Odt) 4 Mg Tab 4 Mg SL Q12HR PRN Zofran Odt (Ondansetron Odt) 4 Mg Tab 4 Mg SL Q6HR PRN Reported Dicyclomine (Dicyclomine HCl) 10 Mg Cap 10 Mg PO TID Balsalazide 750 Mg Cap 750 Mg PO TID Review of Systems Except as stated in HPI: all other systems reviewed are Neg Physical Exam Narrative GENERAL: 36yo F in mild distress. SKIN: Focused skin assessment warm/dry. HEAD: Atraumatic. Normocephalic. EYES: Pupils equal and round. No scleral icterus. No injection or drainage. CARDIOVASCULAR: Regular rate and rhythm. No murmur appreciated. RESPIRATORY: No accessory muscle use. Clear to auscultation. Breath sounds equal bilaterally. GASTROINTESTINAL: Abdomen soft,+TTP lower abdomen. No rebound tenderness or guarding. MUSCULOSKELETAL: No obvious deformities. No clubbing. No cyanosis. No edema. NEUROLOGICAL: Awake and alert. No obvious cranial nerve deficits. Motor grossly within normal limits. Normal speech. PSYCHIATRIC: Appropriate mood and affect; insight and judgment normal. Data Data Last Documented VS Vital Signs Date Time Temp Pulse Resp B/P (MAP) Pulse Ox O2 Delivery O2 Flow Rate FiO2 02/13/17 00:05 86 18 137/92 (107) 98 02/12/17 18:15 99.3 Room Air Orders Orders Complete Blood Count With Diff (02/12/17 18:22) Comprehensive Metabolic Panel (02/12/17 18:22) Lipase (02/12/17 18:22) Prothrombin Time / Inr (Pt) (02/12/17 18:22) Urinalysis - C+S If Indicated (02/12/17 18:22) Ed Urine Pregnancytest Poc (02/12/17 18:22) Ct Abd/Pel W Iv Contrast(Rout) (02/12/17 ) Ondansetron Inj (Zofran Inj) (02/12/17 21:30) Iohexol 350 Inj (Omnipaque 350 Inj) (02/12/17 23:00) Morphine Inj (Morphine Inj) (02/13/17 00:15) Ed Discharge Order (02/13/17 01:04) Prednisone (Deltasone) (02/13/17 01:15) Labs Laboratory Tests Test 02/12/17 18:40 White Blood Count 11.0 TH/MM3 Red Blood Count 4.65 MIL/MM3 Hemoglobin 15.7 GM/DL Hematocrit 45.2 % Mean Corpuscular Volume 97.1 FL Mean Corpuscular Hemoglobin 33.8 PG Mean Corpuscular Hemoglobin Concent 34.8 % Red Cell Distribution Width 12.4 % Platelet Count 306 TH/MM3 Mean Platelet Volume 8.2 FL Neutrophils (%) (Auto) 72.9 % Lymphocytes (%) (Auto) 15.1 % Monocytes (%) (Auto) 10.4 % Eosinophils (%) (Auto) 1.1 % Basophils (%) (Auto) 0.5 % Neutrophils # (Auto) 8.0 TH/MM3 Lymphocytes # (Auto) 1.7 TH/MM3 Monocytes # (Auto) 1.1 TH/MM3 Eosinophils # (Auto) 0.1 TH/MM3 Basophils # (Auto) 0.1 TH/MM3 CBC Comment DIFF FINAL Differential Comment Prothrombin Time 10.1 SEC Prothromb Time International Ratio 0.9 RATIO Urine Color YELLOW Urine Turbidity HAZY Urine pH 5.5 Urine Specific [place] 1.019 Urine Protein TRACE mg/dL Urine Glucose (UA) NEG mg/dL Urine Ketones NEG mg/dL Urine Occult Blood SMALL Urine Nitrite NEG Urine Bilirubin NEG Urine Urobilinogen LESS THAN 2.0 MG/DL Urine Leukocyte Esterase NEG Urine RBC 1 /hpf Urine WBC 1 /hpf Urine Squamous Epithelial Cells 7 /hpf Urine Amorphous Sediment RARE Urine Hyaline Casts 3 /lpf Urine Mucus FEW /lpf Microscopic Urinalysis Comment CULT NOT INDICATED Blood Urea Nitrogen 10 MG/DL Creatinine 0.85 MG/DL Random Glucose 86 MG/DL Total Protein 8.0 GM/DL Albumin 3.4 GM/DL Calcium Level 8.6 MG/DL Alkaline Phosphatase 112 U/L Aspartate Amino Transf (AST/SGOT) 38 U/L Alanine Aminotransferase (ALT/SGPT) 35 U/L Total Bilirubin 0.4 MG/DL Sodium Level 135 MEQ/L Potassium Level 3.7 MEQ/L Chloride Level 102 MEQ/L Carbon Dioxide Level 22.7 MEQ/L Anion Gap 10 MEQ/L Estimat Glomerular Filtration Rate 77 ML/MIN Lipase 171 U/L MDM Medical Decision Making Medical Screen Exam Complete: Yes Emergency Medical Condition: Yes Differential Diagnosis Ulcerative colitis flare up vs. obstruction vs. fistula Narrative Course 36yo F with h/o ulcerative colitis here with lower abdominal pain and nausea. Labs reviewed, no leukocytosis. Lipase normal. CMP unremarkable. UA negative. CT a/p showed questionable thickening of descending colon and proximal sigmoid colon. Vital signs normal. Pt given zofran and morphine which improved pain and nausea. Pt able to tolerate PO now. Pt has no leukocytosis and is nontoxic appearing. Feel that the questionable thickening is part of of her ulcerative colitis flare up so given a dose of prednisone here and will discharge with prednisone and have pt follow up with GI. Pt is already taking balsalazide and dicyclomine and advised to call her GI physician tomorrow for follow up. Return precautions given. Diagnosis Primary Impression: Abdominal pain Qualified Codes: R10.30 - Lower abdominal pain, unspecified Patient Instructions: General Instructions Departure Forms: Tests/Procedures Additional Instructions: Please follow up with your GI physician tomorrow. Return to the ED if symptoms worsen. Med/Other Pt SpecificInfo: Prescription(s) given Scripts Hydrocodone/Acetaminophen (Hydrocodone-Acetamin 5-325 mg) 5 Mg-325 Mg Tablet 1 TAB PO Q6HR, #7 Prov: Marcella Lopez DO 02/13/17 Prednisone (Prednisone) 20 Mg Tab 40 MG PO DAILY for 10 Days, TAB 0 Refills Prov: Marcella Lopez DO 02/13/17 Ondansetron Odt (Zofran Odt) 4 Mg Tab 4 MG SL Q12HR Y for Nausea/Vomiting, #6 TAB 0 Refills Prov: Marcella Lopez DO 02/13/17 Disposition: 01 DISCHARGE HOME Condition: Stable Marcella Lopez DO Feb 12, 2017 21:25
[2017-02-12] MEDS ORDERED: ONDANSETRON HCL 4 MG/2 ML VIAL IV PUSH ONE (21:30)
[2017-02-12] MEDS ORDERED: IOHEXOL 350 MG/ML 10 ML VIAL (for RAD DIAG) IVCONTRAST ONE (23:00)
--- NOTE | 2017-02-12 23:26 | RADRPT ---
EXAM DATE/TIME: 02/12/2017 22:51 [facility] COMPARISON: CT ABDOMEN & PELVIS W CONTRAST, July 22, 2016, 9:29. INDICATIONS : Lower abdominal pain with blood in stool. History of colitis. IV CONTRAST: 100 cc Omnipaque 350 (iohexol) IV ORAL CONTRAST: No oral contrast ingested. RADIATION DOSE: 6.97 CTDIvol (mGy) MEDICAL HISTORY : Ulcerative colitis. SURGICAL HISTORY : None. ENCOUNTER: Initial ACUITY: 2 days PAIN SCALE: 9/10 LOCATION: Bilateral lower quadrant TECHNIQUE: Volumetric scanning of the abdomen and pelvis was performed. Using automated exposure control and ad justment of the mA and/or kV according to patient size, radiation dose was kept as low as reasonably achievable to obtain optimal diagnostic quality images. DICOM format image data is available electro nically for review and comparison. FINDINGS: LOWER LUNGS: The visualized lower lungs are clear. LIVER: There is mild decreased density seen in the liver without lesion. There is no dilation of the biliar y tree. No calcified gallstones. SPLEEN: Normal size without lesion. PANCREAS: Within normal limits. KIDNEYS: Normal in size and shape. There is no solid mass, stone or hydronephrosis. There is a 0.7 cm cyst at the posterior superior lateral right kidney. ADRENAL GLANDS: Within normal limits. VASCULAR: There is no aortic aneurysm. BOWEL/MESENTERY: There is some thickening of descending colon and proximal sigmoid colon. Some of this may be secondar y to lack of distention. Significant surrounding inflammatory change is not seen. The distal sigmoid colon and rectum do not appear thickened. ABDOMINAL WALL: Within normal limits. RETROPERITONEUM: There is no lymphadenopathy. BLADDER: No wall thickening or mass. REPRODUCTIVE: Within normal limits. INGUINAL: There is no lymphadenopathy or hernia. MUSCULOSKELETAL: Within normal limits for patient age. CONCLUSION: 1. Questionable thickening of the descending colon and proximal sigmoid colon. 2. Mild hepatic steatosis. Emil Moreau MD on February 12, 2017 at 23:17 Board Certified Radiologist. This report was verified electronically.
[2017-02-13 00:05] VITALS: BP 137/92; PULSE 86; RESP 18; O2SAT 98
[2017-02-13] MEDS ORDERED: MORPHINE SULFATE 8 MG/ML INJ IV PUSH ONE (00:15)
[2017-02-13] MEDS ORDERED: ZOFR4TAB3 SL (01:09)
[2017-02-13] MEDS ORDERED: HYDR-3516 PO (01:12)
[2017-02-13] MEDS ORDERED: PRED20 PO (01:12)
[2017-02-13] MEDS ORDERED: predniSONE 20 MG TAB PO ONE (01:15)
== END 2017-02-13 01:33 | disposition home or self-care (01) ==
LOC: NEPD 18:14
DX: R10.30 Lower abdominal pain, unspecified (principal); K76.0 Fatty (change of) liver, not elsewhere classified; R11.2 Nausea with vomiting, unspecified; R19.7 Diarrhea, unspecified; J45.909 Unspecified asthma, uncomplicated; Z87.19 Personal history of other diseases of the digestive system
CPT/HCPCS: 74177; 80053; 81001; 83690; 84703; 85025; 85610; 96374; 96375; 99285; J2270; J2405; J7512; Q9967

== ENCOUNTER 2017-03-18 15:13 | Emergency (ER) | payer SELFPAY ==
[~2017-03-18] VITALS: Ht 175.3 cm; Wt 81.8 kg
[~2017-03-18 15:13] MED LIST changes: +BALS750C PO; +DICY10CA12 PO; +HYDR-3516 PO; -TRAM50TA PO
[2017-03-18 15:23] VITALS: BP 137/87; PULSE 116; RESP 13; TEMP 98.9; O2SAT 100
[2017-03-18] MEDS ORDERED: SODIUM CHLOR 0.9% 1000 ML INJ 1,000 ML IV SCH (16:07)
[2017-03-18] MEDS ORDERED: MORPHINE SULFATE 4 MG/ML INJ IV PUSH ONE ×2 (16:15→18:00)
[2017-03-18] MEDS ORDERED: ONDANSETRON HCL 4 MG/2 ML VIAL IVP ONE (16:15)
[2017-03-18] MEDS ORDERED: methylPREDNISolone SOD SUCC 125 MG/2 ML VIAL IV PUSH ONE (16:15)
--- NOTE | 2017-03-18 16:17 | PD ---
HPI Chief Complaint: Abdominal Pain Time Seen by Provider: 16:02 Travel History International Travel<30 days: No Contact w/Intl Traveler<30days: No Traveled to known affect area: No History of Present Illness HPI C/O LOWER ABD CRAMPY PAIN 7/10, BRIGHT RED BLOOD PER RECTUM, WORSENING OVER THE LAST 3-4 DAYS...DESPITE TAKING FULL TREATMENT (PREDNISONE, BALSALAZINE, OMEPRAZOLE, HEMAIDAN GI PMHX: ULCERATIVE COLIITS PFSH Past Medical History Hx Anticoagulant Therapy: No Asthma: Yes Blood Disorders: No Cancer: No Cardiovascular Problems: No Chemotherapy: No COPD: No Cerebrovascular Accident: No Diabetes: No Endocrine: No Gastrointestinal Disorders: No Genitourinary: No Immune Disorder: No Implanted Vascular Access Dvce: No Musculoskeletal: No Neurologic: No Psychiatric: No Reproductive: No Respiratory: Yes (asthma) Sleep Apnea: No ?: Not Past Surgical History Abdominal Surgery: No Other Surgery: No Social History Alcohol Use: Yes (daily) Tobacco Use: No Substance Use: No Allergies-Medications (Allergen,Severity, Reaction): Coded Allergies: No Known Allergies (Unverified Allergy, Unknown, 03/18/17) Reported Meds & Prescriptions Reported Meds & Active Scripts Active Flagyl (Metronidazole) 500 Mg Tab 500 Mg PO TID [address] (Mesalamine) 800 Mg Tab 1,600 Mg PO TID 7 Days Hydrocodone-Acetamin 5-325 mg (Hydrocodone/Acetaminophen) 5 Mg-325 Mg Tablet 1 Tab PO Q6HR Prednisone 20 Mg Tab 40 Mg PO DAILY 10 Days Zofran Odt (Ondansetron Odt) 4 Mg Tab 4 Mg SL Q12HR PRN Zofran Odt (Ondansetron Odt) 4 Mg Tab 4 Mg SL Q6HR PRN Reported Dicyclomine (Dicyclomine HCl) 10 Mg Cap 10 Mg PO TID Balsalazide 750 Mg Cap 750 Mg PO TID Data Data Last Documented VS Vital Signs Date Time Temp Pulse Resp B/P (MAP) Pulse Ox O2 Delivery O2 Flow Rate FiO2 03/18/17 17:30 17 03/18/17 17:22 108 142/90 (107) 99 Room Air 03/18/17 15:23 98.9 Orders Orders Complete Blood Count With Diff (03/18/17 16:07) Comprehensive Metabolic Panel (03/18/17 16:07) Lipase (03/18/17 16:07) Abdomen, Flat & Upright (03/18/17 ) Iv Access Insert/Monitor (03/18/17 16:07) Ecg Monitoring (03/18/17 16:07) Oximetry (03/18/17 16:07) NPO (03/18/17 16:07) Morphine Inj (Morphine Inj) (03/18/17 16:15) Ondansetron Inj (Zofran Inj) (03/18/17 16:15) Sodium Chlor 0.9% 1000 Ml Inj (Ns 1000 M (03/18/17 16:07) Methylprednisolone So Succ Inj (Solumedr (03/18/17 16:15) Morphine Inj (Morphine Inj) (03/18/17 17:15) Morphine Inj (Morphine Inj) (03/18/17 18:00) Labs Laboratory Tests Test 03/18/17 16:55 White Blood Count 13.9 TH/MM3 Red Blood Count 4.80 MIL/MM3 Hemoglobin 16.5 GM/DL Hematocrit 46.5 % Mean Corpuscular Volume 96.9 FL Mean Corpuscular Hemoglobin 34.4 PG Mean Corpuscular Hemoglobin Concent 35.5 % Red Cell Distribution Width 12.2 % Platelet Count 355 TH/MM3 Mean Platelet Volume 8.3 FL Neutrophils (%) (Auto) 77.5 % Lymphocytes (%) (Auto) 14.2 % Monocytes (%) (Auto) 6.8 % Eosinophils (%) (Auto) 1.2 % Basophils (%) (Auto) 0.3 % Neutrophils # (Auto) 10.8 TH/MM3 Lymphocytes # (Auto) 2.0 TH/MM3 Monocytes # (Auto) 1.0 TH/MM3 Eosinophils # (Auto) 0.2 TH/MM3 Basophils # (Auto) 0.0 TH/MM3 CBC Comment DIFF FINAL Differential Comment Blood Urea Nitrogen 10 MG/DL Creatinine 0.93 MG/DL Random Glucose 65 MG/DL Total Protein 8.4 GM/DL Albumin 3.3 GM/DL Calcium Level 9.0 MG/DL Alkaline Phosphatase 102 U/L Aspartate Amino Transf (AST/SGOT) 44 U/L Alanine Aminotransferase (ALT/SGPT) 31 U/L Total Bilirubin 0.5 MG/DL Sodium Level 137 MEQ/L Potassium Level 3.8 MEQ/L Chloride Level 104 MEQ/L Carbon Dioxide Level 24.2 MEQ/L Anion Gap 9 MEQ/L Estimat Glomerular Filtration Rate 69 ML/MIN Lipase 121 U/L MDM Medical Decision Making Medical Screen Exam Complete: Yes Emergency Medical Condition: Yes Medical Record Reviewed: Yes Diagnosis Primary Impression: ULCERATIVE COLITIS EXACERBATION Patient Instructions: General Instructions, Ulcerative Colitis (ED) Scripts Metronidazole (Flagyl) 500 Mg Tab 500 MG PO TID for Infection for 7 Days, #21 TAB 0 Refills Prov: Mulugeta Marroquin MD 03/18/17 Mesalamgisele XIAO (Mesalamine DR) 800 Mg Tab 1600 MG PO TID for Ulcerative Colitis for 7 Days, #21 TAB 0 Refills Prov: Mulugeta Marroquin MD 03/18/17 Disposition: 01 DISCHARGE HOME Condition: Stable Mulugeta Marroquin MD Mar 18, 2017 16:17
--- NOTE | 2017-03-18 16:43 | RADRPT ---
EXAM DATE/TIME: 03/18/2017 16:22 [facility] COMPARISON: No previous studies available for comparison. INDICATIONS : Abdominal pain, nausea, vomiting, and diarrhea. MEDICAL HISTORY : Ulcerative colitis. SURGICAL HISTORY : None. ENCOUNTER: Initial ACUITY: 4 - 6 days PAIN SCORE: 9/10 LOCATION: entire abdomen. FINDINGS: Supine and upright views of the abdomen were performed. The abdominal bowel gas pattern is normal. No air fluid levels are seen. No abnormal masses, calcifications, or organomegaly is seen. The visu alized lower lungs are clear. No evidence of free intraperitoneal gas. The osseous structures are u nremarkable. CONCLUSION: 1. No evidence of obstruction. Andrey Otero MD on March 18, 2017 at 16:40 Board Certified Radiologist. This report was verified electronically.
[2017-03-18] MEDS ORDERED: MORPHINE SULFATE 2 MG/ML INJ IV PUSH ONE (17:15)
[2017-03-18 17:21] LABS: AUTOMATED NEUTROPHIL # 10.8 TH/MM3 (1.8-7.7); BASOPHIL % 0.3 % (0.0-2.0); EOSINOPHIL # 0.2 TH/MM3 (0-0.4); EOSINOPHIL % 1.2 % (0.0-4.0); HEMATOCRIT 46.5 % (35.0-46.0); HEMOGLOBIN 16.5 GM/DL (11.6-15.3); LYMPH % 14.2 % (9.0-44.0); MEAN CELL VOLUME 96.9 FL (80.0-100.0); MEAN CORPUSCULAR HEMOGLOBIN 34.4 PG (27.0-34.0); MEAN CORPUSCULAR HGB CONC 35.5 % (32.0-36.0); MEAN PLATELET VOLUME 8.3 FL (7.0-11.0); MONO % 6.8 % (0.0-8.0); NEUT % 77.5 % (16.0-70.0); PLATELET COUNT 355 TH/MM3 (150-450); RED CELL DISTRIBUTION WIDTH 12.2 % (11.6-17.2); WHITE BLOOD COUNT 13.9 TH/MM3 (4.0-11.0)
[2017-03-18 17:22] VITALS: BP 142/90; PULSE 108; RESP 20; O2SAT 99
[2017-03-18 17:30] VITALS: RESP 17
[2017-03-18 17:37] LABS: ALKALINE PHOSPHATASE 102 U/L (45-117); TOTAL BILIRUBIN ADULT 0.5 MG/DL (0.2-1.0); TOTAL PROTEIN 8.4 GM/DL (6.4-8.2)
[2017-03-18 17:38] LABS: ALBUMIN 3.3 GM/DL (3.4-5.0); ALT (GPT) 31 U/L (10-53); AST (GOT) 44 U/L (15-37); BICARBONATE 24.2 MEQ/L (21.0-32.0); BLOOD UREA NITROGEN 10 MG/DL (7-18); CHLORIDE 104 MEQ/L (98-107); CREATININE 0.93 MG/DL (0.50-1.00); GLOMERULAR FILTRATION RATE 69 ML/MIN (>89); GLUCOSE,RANDOM 65 MG/DL (74-106); LIPASE 121 U/L (73-393); SODIUM (NA) 137 MEQ/L (136-145)
[2017-03-18] MEDS ORDERED: METR-1 PO (17:59)
[2017-03-18] MEDS ORDERED: MESA1TAB2 PO (17:59)
[2017-03-18] MEDS ORDERED: MORPHINE SULFATE 2 MG/ML INJ IV ONE (18:00)
== END 2017-03-18 19:54 | disposition home or self-care (01) ==
LOC: NEPE 15:13
DX: K51.911 Ulcerative colitis, unspecified with rectal bleeding (principal)
CPT/HCPCS: 74019; 80053; 83690; 85025; 96374; 96375; 96376; 99284; J2270; J2405; J2930; J7030

== ENCOUNTER 2017-04-03 17:21 | Emergency (ER) | payer SELFPAY ==
[~2017-04-03] VITALS: Ht 175.3 cm; Wt 80.5 kg
[~2017-04-03 17:21] MED LIST changes: +MESA1TAB2 PO; +METR-1 PO
[2017-04-03 17:22] VITALS: BP 147/81; PULSE 114; RESP 20; TEMP 99.4; O2SAT 97
[2017-04-03] MEDS ORDERED: IOHEXOL 350 MG/ML 10 ML VIAL (for RAD DIAG) IVCONTRAST ONE (17:22)
--- NOTE | 2017-04-03 18:01 | PD ---
HPI Chief Complaint: Abdominal Pain Time Seen by Provider: 18:06 Travel History International Travel<30 days: No Contact w/Intl Traveler<30days: No Traveled to known affect area: No History of Present Illness HPI 36yo F presented to the ED for abdominal pain. Pt reports that 9 days ago she started having N/V/D, which she believes is a flare up of her ulcerative colitis. She reported that a few weeks ago she came to the [facility] ED for the same symptoms and was told she was having a UC flare up, and was d/c with mesalamine , hydrocodone and antibiotics. She reports that she has not been able to eat or drink anything for 9 days. Pain is currently rated a 10 out of 10. Modifying Factors: None Associated Signs & Symptoms: abdominal pain, nausea, vomiting, diarrhea, blood in the stools Risk Factors: Ulcerative colitis PFSH Past Medical History Hx Anticoagulant Therapy: No Asthma: Yes Blood Disorders: No Cancer: No Cardiovascular Problems: No Chemotherapy: No COPD: No Cerebrovascular Accident: No Diabetes: No Diminished Hearing: No Endocrine: No Gastrointestinal Disorders: Yes (UC) Genitourinary: No Immune Disorder: No Implanted Vascular Access Dvce: No Musculoskeletal: No Neurologic: No Psychiatric: No Reproductive: No Respiratory: Yes (asthma) Sleep Apnea: No ?: Not Past Surgical History Surgical History: No Previous Surgery Abdominal Surgery: No Other Surgery: No Social History Alcohol Use: Yes (6 BEERS 1/2 BOTTLE WINE DAILY) Tobacco Use: Yes Substance Use: No Allergies-Medications (Allergen,Severity, Reaction): Coded Allergies: No Known Allergies (Unverified Allergy, Unknown, 03/18/17) Reported Meds & Prescriptions Reported Meds & Active Scripts Active Reported Dicyclomine (Dicyclomine HCl) 10 Mg Cap 10 Mg PO TID Balsalazide 750 Mg Cap 750 Mg PO TID Review of Systems Except as stated in HPI: all other systems reviewed are Neg Physical Exam Narrative GENERAL: Well-developed young white female patient currently in mild distress. Awake and oriented 3. SKIN: Focused skin assessment warm/dry. HEAD: Atraumatic. Normocephalic. EYES: Pupils equal and round. No scleral icterus. No injection or drainage. ENT: No nasal bleeding or discharge. Mucous membranes pink and moist. NECK: Trachea midline. No JVD. Supple. CARDIOVASCULAR: Regular rate and rhythm. No murmur appreciated. RESPIRATORY: No accessory muscle use. Wheezing throughout bilaterally. Breath sounds equal bilaterally. GASTROINTESTINAL: Abdomen soft, mild diffuse upper arm tenderness without guarding or rebound more pronounced in the upper abdomen, nondistended. Hepatic and splenic margins not palpable. MUSCULOSKELETAL: No obvious deformities. No clubbing. No cyanosis. No edema. NEUROLOGICAL: Awake and alert. No obvious cranial nerve deficits. Motor grossly within normal limits. Normal speech. PSYCHIATRIC: Appropriate mood and affect; insight and judgment normal. Data Data Last Documented VS Vital Signs Date Time Temp Pulse Resp B/P (MAP) Pulse Ox O2 Delivery O2 Flow Rate FiO2 04/03/17 17:22 99.4 114 20 147/81 (103) 97 Room Air Orders Orders Complete Blood Count With Diff (04/03/17 18:06) Comprehensive Metabolic Panel (04/03/17 18:06) Lipase (04/03/17 18:06) Urinalysis - C+S If Indicated (04/03/17 18:06) Iv Access Insert/Monitor (04/03/17 18:06) Ecg Monitoring (04/03/17 18:06) Oximetry (04/03/17 18:06) Morphine Inj (Morphine Inj) (04/03/17 18:15) Ondansetron Inj (Zofran Inj) (04/03/17 18:15) Sodium Chlor 0.9% 1000 Ml Inj (Ns 1000 M (04/03/17 18:06) Sodium Chloride 0.9% Flush (Ns Flush) (04/03/17 18:15) Ed Urine Pregnancytest Poc (04/03/17 18:06) Influenzae A/B Antigen (04/03/17 18:07) Chest, Single Ap (04/03/17 18:08) Abdomen, Flat & Upright (04/03/17 18:08) Methylprednisolone So Succ Inj (Solumedr (04/03/17 18:15) Albuterol-Ipratropium Neb (Duoneb Neb) (04/03/17 18:15) Ct Abd/Pel W Iv Contrast(Rout) (04/03/17 18:18) Labs Laboratory Tests Test 04/03/17 19:05 04/03/17 19:15 MDM Medical Decision Making Medical Screen Exam Complete: Yes Emergency Medical Condition: Yes Medical Record Reviewed: Yes Interpretation(s) Last 24 hours Impressions Chest X-Ray 04/03/171807 Signed Impressions: Service Date/Time: March 18:28 - CONCLUSION: Normal examination. Ar Loaiza Jr., MD Abdomen X-Ray 04/03/171807 Signed Impressions: Service Date/Time: March 18:23 - CONCLUSION: Normal examination. Ar Loaiza Jr., MD Laboratory Tests Test 04/03/17 19:05 04/03/17 19:15 Differential Diagnosis Asthma exacerbation versus pneumonia versus dehydration versus metabolic issues versus influenza versus acute obstruction versus gastroenteritis versus ulcerative colitis flare versus other acute intra-abdominal processes Narrative Course She appears to have underlying asthma exacerbation and Solu-Medrol and nebulizers were given in the ER. She was given IV fluids, morphine and Zofran in the ER. Lab work and CAT scan ordered for further evaluation. Physician Communication Physician Communication Case is signed out to Dr. Saunders at 7 PM awaiting workup. Disposition based on workup. Diagnosis Primary Impression: Abdominal pain Additional Impression: Asthma exacerbation Condition: Stable Yaneli Castillo MD Apr 03, 2017 18:01
[2017-04-03] MEDS ORDERED: SODIUM CHLOR 0.9% 1000 ML INJ 1,000 ML IV SCH (18:06)
[2017-04-03] MEDS ORDERED: MORPHINE SULFATE 4 MG/ML INJ IV PUSH ONE (18:15)
[2017-04-03] MEDS ORDERED: ONDANSETRON HCL 4 MG/2 ML VIAL IVP ONE (18:15)
[2017-04-03] MEDS ORDERED: SODIUM CHLORIDE 0.9% FLUSH 10 ML FLUSH IV FLUSH PRN (18:15)
[2017-04-03] MEDS ORDERED: methylPREDNISolone SOD SUCC 125 MG/2 ML VIAL IV PUSH ONE (18:15)
--- NOTE | 2017-04-03 18:30 | RADRPT ---
EXAM DATE/TIME: 04/03/2017 18:28 [facility] COMPARISON: No previous studies available for comparison. INDICATIONS : Wheezing. MEDICAL HISTORY : Ulcerative colitis. SURGICAL HISTORY : None. ENCOUNTER: Initial ACUITY: 3 days PAIN SCORE: 0/10 LOCATION: Bilateral chest FINDINGS: A single view of the chest demonstrates the lungs to be symmetrically aerated without evidence of mas s, infiltrate or effusion. The cardiomediastinal contours are unremarkable. Osseous structures are intact. CONCLUSION: Normal examination. Ar Loaiza Jr., MD on April 03, 2017 at 18:28 Board Certified Radiologist. This report was verified electronically.
--- NOTE | 2017-04-03 18:45 | RADRPT ---
EXAM DATE/TIME: 04/03/2017 18:23 [facility] COMPARISON: ABDOMEN FLAT & UPRIGHT, March 18, 2017, 16:22. INDICATIONS : Abdominal pain and distention. MEDICAL HISTORY : Ulcerative colitis. SURGICAL HISTORY : None. ENCOUNTER: Initial ACUITY: 3 days PAIN SCORE: 9/10 LOCATION: entire abdomen. FINDINGS: Supine and upright views of the abdomen were performed. The abdominal bowel gas pattern is normal. No air fluid levels are seen. No abnormal masses, calcifications, or organomegaly is seen. The visu alized lower lungs are clear. No evidence of free intraperitoneal gas. The osseous structures are u nremarkable. CONCLUSION: Normal examination. Ar Loaiza Jr., MD on April 03, 2017 at 18:42 Board Certified Radiologist. This report was verified electronically.
[2017-04-03] MEDS: RESP: ALBUTEROL 2.5 MG/IPRATROPIUM 0.5 MG NEB (SCH) INH (18:48)
[2017-04-03 19:42] LABS: AUTOMATED NEUTROPHIL # 9.7 TH/MM3 (1.8-7.7); BASOPHIL # 0.1 TH/MM3 (0-0.2); BASOPHIL % 0.4 % (0.0-2.0); EOSINOPHIL # 0.1 TH/MM3 (0-0.4); EOSINOPHIL % 1.1 % (0.0-4.0); HEMATOCRIT 44.1 % (35.0-46.0); HEMOGLOBIN 15.3 GM/DL (11.6-15.3); LYMPH % 15.5 % (9.0-44.0); MEAN CELL VOLUME 96.5 FL (80.0-100.0); MEAN CORPUSCULAR HEMOGLOBIN 33.6 PG (27.0-34.0); MEAN CORPUSCULAR HGB CONC 34.8 % (32.0-36.0); MEAN PLATELET VOLUME 8.6 FL (7.0-11.0); MONO % 8.2 % (0.0-8.0); MONOCYTE # 1.1 TH/MM3 (0-0.9); NEUT % 74.8 % (16.0-70.0); PLATELET COUNT 345 TH/MM3 (150-450); RED BLOOD COUNT 4.56 MIL/MM3 (4.00-5.30); RED CELL DISTRIBUTION WIDTH 12.7 % (11.6-17.2)
[2017-04-03 19:45] LABS: AMORPHOUS SEDIMENT, URINE RARE; BACTERIA, URINE RARE /hpf; BILIRUBIN, URINE NEG (NEG); BLOOD, URINE NEG (NEG); GLUCOSE,URINE NEG (NEG); KETONE, URINE 40 mg/dL (NEG); MUCUS URINE MANY /lpf (OCC); NITRITE,URINE NEG (NEG); PH, URINE 5.5 (5.0-8.5); SQUAMOUS EPITHELIAL CELL URINE 9 /hpf (0-5); URINE COLOR DARK-YELLOW (YELLW/STRAW); URINE LEUKOCYTE ESTERASE TRACE (NEG)
[2017-04-03 19:58] LABS: ALBUMIN 3.3 GM/DL (3.4-5.0); AST (GOT) 23 U/L (15-37); BICARBONATE 24.8 MEQ/L (21.0-32.0); BLOOD UREA NITROGEN 7 MG/DL (7-18); CALCIUM 9.2 MG/DL (8.5-10.1); CHLORIDE 103 MEQ/L (98-107); CREATININE 0.89 MG/DL (0.50-1.00); GLOMERULAR FILTRATION RATE 73 ML/MIN (>89); GLUCOSE,RANDOM 86 MG/DL (74-106); LIPASE 76 U/L (73-393); SODIUM (NA) 137 MEQ/L (136-145)
[2017-04-03 19:59] LABS: ALT (GPT) 18 U/L (10-53)
[2017-04-03 20:01] LABS: ALKALINE PHOSPHATASE 103 U/L (45-117); TOTAL BILIRUBIN ADULT 0.5 MG/DL (0.2-1.0); TOTAL PROTEIN 8.1 GM/DL (6.4-8.2)
[2017-04-03 20:24] VITALS: BP 124/58; PULSE 104; RESP 16; O2SAT 97
--- NOTE | 2017-04-03 20:37 | RADRPT ---
EXAM DATE/TIME: 04/03/2017 19:54 [facility] COMPARISON: CT ABDOMEN & PELVIS W CONTRAST, February 12, 2017, 22:51. INDICATIONS : Abdomen pain IV CONTRAST: 96 cc Omnipaque 350 (iohexol) IV ORAL CONTRAST: No oral contrast ingested. RADIATION DOSE: 12.23 CTDIvol (mGy) MEDICAL HISTORY : Ulcerative colitis. SURGICAL HISTORY : None. ENCOUNTER: Initial ACUITY: 1 day PAIN SCALE: 10/10 LOCATION: Abdomen TECHNIQUE: Volumetric scanning of the abdomen and pelvis was performed. Using automated exposure control and ad justment of the mA and/or kV according to patient size, radiation dose was kept as low as reasonably achievable to obtain optimal diagnostic quality images. DICOM format image data is available electro nically for review and comparison. FINDINGS: LOWER LUNGS: The visualized lower lungs are clear. LIVER: Homogeneous density without lesion. There is no dilation of the biliary tree. No calcified gallston es. SPLEEN: Normal size without lesion. PANCREAS: Within normal limits. KIDNEYS: Normal in size and shape. There is no mass, stone or hydronephrosis. ADRENAL GLANDS: Within normal limits. VASCULAR: There is no aortic aneurysm. BOWEL/MESENTERY: There is mild circumferential wall thickening involving the descending colon and sigmoid colon. No st randing of the adjacent fat. No dilatation of the more proximal small bowel to suggest obstruction. N o free air or free fluid. ABDOMINAL WALL: Within normal limits. RETROPERITONEUM: There is no lymphadenopathy. BLADDER: No wall thickening or mass. REPRODUCTIVE: Within normal limits. INGUINAL: There is no lymphadenopathy or hernia. MUSCULOSKELETAL: Within normal limits for patient age. CONCLUSION: 1. Mild inflammatory process involving the descending colon and sigmoid colon consistent with history of ulcerative colitis. Ar Loaiza Jr., MD on April 03, 2017 at 20:33 Board Certified Radiologist. This report was verified electronically.
[2017-04-03] MEDS ORDERED: MORPHINE SULFATE 2 MG/ML INJ IV PUSH ONE (22:30)
[2017-04-03] MEDS ORDERED: SODIUM CHLOR 0.9% 1000 ML INJ 1,000 ML IV ONE (22:30)
--- NOTE | 2017-04-03 22:38 | PD ---
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 Data Data Last Documented VS Vital Signs Date Time Temp Pulse Resp B/P (MAP) Pulse Ox O2 Delivery O2 Flow Rate FiO2 04/03/17 23:05 04/03/17 20:24 104 16 97 Room Air 04/03/17 17:22 99.4 Orders Orders Complete Blood Count With Diff (04/03/17 18:06) Comprehensive Metabolic Panel (04/03/17 18:06) Lipase (04/03/17 18:06) Urinalysis - C+S If Indicated (04/03/17 18:06) Iv Access Insert/Monitor (04/03/17 18:06) Ecg Monitoring (04/03/17 18:06) Oximetry (04/03/17 18:06) Morphine Inj (Morphine Inj) (04/03/17 18:15) Ondansetron Inj (Zofran Inj) (04/03/17 18:15) Sodium Chlor 0.9% 1000 Ml Inj (Ns 1000 M (04/03/17 18:06) Sodium Chloride 0.9% Flush (Ns Flush) (04/03/17 18:15) Ed Urine Pregnancytest Poc (04/03/17 18:06) Influenzae A/B Antigen (04/03/17 18:07) Chest, Single Ap (04/03/17 18:08) Abdomen, Flat & Upright (04/03/17 18:08) Methylprednisolone So Succ Inj (Solumedr (04/03/17 18:15) Albuterol-Ipratropium Neb (Duoneb Neb) (04/03/17 18:15) Ct Abd/Pel W Iv Contrast(Rout) (04/03/17 18:18) Iohexol 350 Inj (Omnipaque 350 Inj) (04/03/17 17:22) Sodium Chlor 0.9% 1000 Ml Inj (Ns 1000 M (04/03/17 22:30) Morphine Inj (Morphine Inj) (04/03/17 22:30) Ed Discharge Order (04/03/17 23:01) Labs Laboratory Tests Test 04/03/17 19:05 04/03/17 19:15 White Blood Count 13.0 TH/MM3 Red Blood Count 4.56 MIL/MM3 Hemoglobin 15.3 GM/DL Hematocrit 44.1 % Mean Corpuscular Volume 96.5 FL Mean Corpuscular Hemoglobin 33.6 PG Mean Corpuscular Hemoglobin Concent 34.8 % Red Cell Distribution Width 12.7 % Platelet Count 345 TH/MM3 Mean Platelet Volume 8.6 FL Neutrophils (%) (Auto) 74.8 % Lymphocytes (%) (Auto) 15.5 % Monocytes (%) (Auto) 8.2 % Eosinophils (%) (Auto) 1.1 % Basophils (%) (Auto) 0.4 % Neutrophils # (Auto) 9.7 TH/MM3 Lymphocytes # (Auto) 2.0 TH/MM3 Monocytes # (Auto) 1.1 TH/MM3 Eosinophils # (Auto) 0.1 TH/MM3 Basophils # (Auto) 0.1 TH/MM3 CBC Comment DIFF FINAL Differential Comment Blood Urea Nitrogen 7 MG/DL Creatinine 0.89 MG/DL Random Glucose 86 MG/DL Total Protein 8.1 GM/DL Albumin 3.3 GM/DL Calcium Level 9.2 MG/DL Alkaline Phosphatase 103 U/L Aspartate Amino Transf (AST/SGOT) 23 U/L Alanine Aminotransferase (ALT/SGPT) 18 U/L Total Bilirubin 0.5 MG/DL Sodium Level 137 MEQ/L Potassium Level 3.5 MEQ/L Chloride Level 103 MEQ/L Carbon Dioxide Level 24.8 MEQ/L Anion Gap 9 MEQ/L Estimat Glomerular Filtration Rate 73 ML/MIN Lipase 76 U/L Urine Color DARK-YELLOW Urine Turbidity HAZY Urine pH 5.5 Urine Specific [place] 1.027 Urine Protein 30 mg/dL Urine Glucose (UA) NEG mg/dL Urine Ketones 40 mg/dL Urine Occult Blood NEG Urine Nitrite NEG Urine Bilirubin NEG Urine Urobilinogen 2.0 MG/DL Urine Leukocyte Esterase TRACE Urine RBC 3 /hpf Urine WBC 2 /hpf Urine Squamous Epithelial Cells 9 /hpf Urine Amorphous Sediment RARE Urine Bacteria RARE /hpf Urine Mucus MANY /lpf Microscopic Urinalysis Comment CULT NOT INDICATED MDM Supervised Visit with AL: No Diagnosis Primary Impression: Abdominal pain Qualified Codes: R10.9 - Unspecified abdominal pain Additional Impression: Ulceration, colon Scripts Ipratropium Neb (Ipratropium Neb) 0.5 Mg/2.5 Ml Amp 0.5 MG NEB Q6HR NEB for Breathing Treatment, #60 NEBULE 0 Refills Prov: Simone Saunders MD 04/03/17 Prednisone (Prednisone) 50 Mg Tab 50 MG PO DAILY, #3 TAB 0 Refills Prov: Simone Saunders MD 04/03/17 Hydrocodone-Acetaminophen ([place]) 5 Mg-325 Mg Tab 1 TAB PO Q6H Y for PAIN, #10 TAB 0 Refills Prov: Simone Saunders MD 04/03/17 Ondansetron Odt (Zofran Odt) 4 Mg Tab 4 MG SL ONCE for Nausea/Vomiting, #15 TAB 0 Refills Prov: Simone Saunders MD 04/03/17 Disposition: 01 DISCHARGE HOME Condition: Good Simone Saunders MD Apr 03, 2017 22:38
[2017-04-03] MEDS ORDERED: NORC5TAB PO (22:56)
[2017-04-03] MEDS ORDERED: ZOFR4TAB3 SL (22:56)
[2017-04-03] MEDS ORDERED: PRED50 PO (22:57)
[2017-04-03] MEDS ORDERED: IPRA0.02 NEB (23:21)
== END 2017-04-03 23:37 | disposition home or self-care (01) ==
LOC: NEPE 17:21
DX: R10.9 Unspecified abdominal pain (principal); K63.3 Ulcer of intestine; J45.901 Unspecified asthma with (acute) exacerbation; Z72.0 Tobacco use
CPT/HCPCS: 71045; 74019; 74177; 80053; 81001; 83690; 84703; 85025; 87804; 94640; 94664; 96361; 96374; 96375; 99285; J2270; J2405; J2930; J7030; Q9967

== ENCOUNTER 2017-06-12 02:49 | Emergency (ER) | payer OTHER ==
[~2017-06-12] VITALS: Ht 177.8 cm; Wt 85.0 kg
[~2017-06-12 02:49] MED LIST changes: -HYDR-3516 PO; +IPRA0.02 NEB; -MESA1TAB2 PO; -METR-1 PO; +NORC5TAB PO; -PRED20 PO; +PRED50 PO
[2017-06-12 03:10] VITALS: BP 135/72; PULSE 111; RESP 18; TEMP 98.5; O2SAT 99
[2017-06-12] MEDS ORDERED: ONDANSETRON HCL 4 MG/2 ML VIAL IV PUSH ONE (07:30)
[2017-06-12] MEDS ORDERED: SODIUM CHLOR 0.9% 1000 ML INJ 1,000 ML IV ONE (07:30)
[2017-06-12 07:45] VITALS: BP 138/88; PULSE 95; RESP 16; O2SAT 98
--- NOTE | 2017-06-12 08:01 | PD ---
HPI Chief Complaint: Abdominal Pain Time Seen by Provider: 07:45 Travel History International Travel<30 days: No Contact w/Intl Traveler<30days: No Traveled to known affect area: No History of Present Illness HPI 36-year-old female presents with rectal bleeding, nausea, decreased appetite and diffuse abdominal pain and nasal congestion over the past couple of days. She states she has had this before with her ulcerative colitis but this is the most severe for her. She states every time she goes to the bathroom it is bright red blood and a large amount. Quality pain is sharp. Severity is severe. She denies specific modifying factors other than the pain increases when she goes to the bathroom. She notes taking her home medications without improvement. She denies other concurrent complaints. PFSH Past Medical History Hx Anticoagulant Therapy: No Asthma: Yes Blood Disorders: No Cancer: No Cardiovascular Problems: No Chemotherapy: No COPD: No Cerebrovascular Accident: No Diabetes: No Diminished Hearing: No Endocrine: No Gastrointestinal Disorders: Yes (UC) Genitourinary: No Immune Disorder: No Implanted Vascular Access Dvce: No Musculoskeletal: No Neurologic: No Psychiatric: No Reproductive: No Respiratory: Yes (asthma) Sleep Apnea: No Tetanus Vaccination: Unknown Influenza Vaccination: No ?: Not LMP: 05/29/2017 Past Surgical History Abdominal Surgery: No Ear Surgery: Yes Other Surgery: No Social History Alcohol Use: Yes (6 BEERS 1/2 BOTTLE WINE DAILY) Tobacco Use: Yes Substance Use: No Allergies-Medications (Allergen,Severity, Reaction): Coded Allergies: No Known Allergies (Unverified Allergy, Unknown, 06/12/17) Reported Meds & Prescriptions Reported Meds & Active Scripts Active Ipratropium Neb (Ipratropium Sharon) 0.5 Mg/2.5 Ml Amp 0.5 Mg NEB Q6HR NEB Prednisone 50 Mg Tab 50 Mg PO DAILY Wallace (Hydrocodone-Acetaminophen) 5 Mg-325 Mg Tab 1 Tab PO Q6H PRN Zofran Odt (Ondansetron Odt) 4 Mg Tab 4 Mg SL ONCE Reported Dicyclomine (Dicyclomine HCl) 10 Mg Cap 10 Mg PO TID Balsalazide 750 Mg Cap 750 Mg PO TID Review of Systems Except as stated in HPI: all other systems reviewed are Neg Physical Exam Narrative GENERAL: 36-year-old female who appears uncomfortable SKIN: Focused skin assessment warm/dry. HEAD: Atraumatic. Normocephalic. EYES: Pupils equal and round. No scleral icterus. No injection or drainage. ENT: No nasal bleeding or discharge. Mucous membranes pink and moist. NECK: Trachea midline. CARDIOVASCULAR: Regular rate and rhythm. RESPIRATORY: No accessory muscle use. No increased effort GASTROINTESTINAL: Abdomen soft, diffusely tender, nondistended. No rebound MUSCULOSKELETAL: No obvious deformities. No clubbing. No cyanosis. No edema. NEUROLOGICAL: Awake and alert. No obvious cranial nerve deficits. Motor grossly within normal limits. Normal speech. PSYCHIATRIC: Appropriate mood and affect; insight and judgment normal. RECTAL EXAM: Performed with advertising director and after permission. Large thrombosed external hemorrhoid or fissure, stool is brown, with small amount of bright red blood. Data Data Last Documented VS Vital Signs Date Time Temp Pulse Resp B/P (MAP) Pulse Ox O2 Delivery O2 Flow Rate FiO2 06/12/17 10:50 06/12/17 10:15 92 16 98 Room Air 06/12/17 03:10 98.5 Orders Orders Complete Blood Count With Diff (06/12/17 07:25) Comprehensive Metabolic Panel (06/12/17 07:25) Lipase (06/12/17 07:25) Iv Access Insert/Monitor (06/12/17 07:25) Ed Urine Pregnancytest Poc (06/12/17 07:25) Ondansetron Inj (Zofran Inj) (06/12/17 07:30) Sodium Chlor 0.9% 1000 Ml Inj (Ns 1000 M (06/12/17 07:30) Ct Abd/Pel W Iv Contrast(Rout) (06/12/17 ) Influenzae A/B Antigen (06/12/17 07:53) Chest, Single Ap (06/12/17 ) Type And Screen (06/12/17 07:53) Morphine Inj (Morphine Inj) (06/12/17 08:15) Iohexol 350 Inj (Omnipaque 350 Inj) (06/12/17 09:10) Ed Discharge Order (06/12/17 09:40) Morphine Inj (Morphine Inj) (06/12/17 10:15) Labs Laboratory Tests Test 06/12/17 07:51 White Blood Count 10.4 TH/MM3 Red Blood Count 4.37 MIL/MM3 Hemoglobin 14.3 GM/DL Hematocrit 41.4 % Mean Corpuscular Volume 94.7 FL Mean Corpuscular Hemoglobin 32.7 PG Mean Corpuscular Hemoglobin Concent 34.6 % Red Cell Distribution Width 13.2 % Platelet Count 325 TH/MM3 Mean Platelet Volume 7.8 FL Neutrophils (%) (Auto) 65.4 % Lymphocytes (%) (Auto) 18.6 % Monocytes (%) (Auto) 14.5 % Eosinophils (%) (Auto) 0.9 % Basophils (%) (Auto) 0.6 % Neutrophils # (Auto) 6.8 TH/MM3 Lymphocytes # (Auto) 1.9 TH/MM3 Monocytes # (Auto) 1.5 TH/MM3 Eosinophils # (Auto) 0.1 TH/MM3 Basophils # (Auto) 0.1 TH/MM3 CBC Comment DIFF FINAL Differential Comment Blood Urea Nitrogen 12 MG/DL Creatinine 0.99 MG/DL Random Glucose 83 MG/DL Total Protein 8.1 GM/DL Albumin 3.0 GM/DL Calcium Level 8.8 MG/DL Alkaline Phosphatase 102 U/L Aspartate Amino Transf (AST/SGOT) 29 U/L Alanine Aminotransferase (ALT/SGPT) 17 U/L Total Bilirubin 0.3 MG/DL Sodium Level 138 MEQ/L Potassium Level 3.4 MEQ/L Chloride Level 105 MEQ/L Carbon Dioxide Level 23.7 MEQ/L Anion Gap 9 MEQ/L Estimat Glomerular Filtration Rate 64 ML/MIN Lipase 98 U/L [facility] Medical Decision Making Medical Screen Exam Complete: Yes Emergency Medical Condition: Yes Medical Record Reviewed: Yes (pmh confirmed) Interpretation(s) CBC & BMP Diagram 06/12/17 07:51 Total Protein 8.1, Albumin 3.0 L, Calcium Level 8.8, Alkaline Phosphatase 102, Aspartate Amino Transf (AST/SGOT) 29, Alanine Aminotransferase (ALT/SGPT) 17, Total Bilirubin 0.3 Last 24 hours Impressions Chest X-Ray 06/12/17 0000 Signed Impressions: Service Date/Time: May 08:04 - CONCLUSION: No acute disease. Emil Storey MD CT abdomen pelvis is stable from prior with mild bowel wall thickening Differential Diagnosis Ulcerative colitis, abscess, fistula, anemia, gastroenteritis Narrative Course We will check blood work, chest x-ray, influenza, CT scan abdominal pelvis and dose with IV fluids, Zofran, morphine and reevaluate ED workup was stable labs and CT. Will discuss with GI We will give repeat dose of morphine. Patient agrees to plan by GI. Patient denies any new complaints and states that they are feeling better. Patient happy with care, all questions answered. Patient knows that follow up is incumbent on them and to return to the emergency room immediately if new or worsening symptoms develop. Patient given strict return precautions, vitals reviewed and are normal, agrees to further workup as an outpatient. [facility] Point of Care Internal Pos. & Neg. Controls: Passed Fecal Specimen Occult Blood: Positive Physician Communication Physician Communication dr grey states to place on prednisone 40 mg for 1 week followed by 30 mg for 1 week followed by 20 mg for 1 week followed by 10 mg for 1 week and close follow-up in the office Diagnosis Primary Impression: Ulcerative colitis with rectal bleeding Qualified Codes: K51.911 - Ulcerative colitis, unspecified with rectal bleeding Additional Impression: Abdominal pain Qualified Codes: R10.84 - Generalized abdominal pain Patient Instructions: General Instructions Additional Instructions: return as needed, follow with dr Mack Friday-call to schedule, tylenol as needed Med/Other Pt SpecificInfo: Prescription(s) given Disposition: DISCHARGE HOME Condition: Stable Morena Jackson MD Jun 12, 2017 08:01
[2017-06-12 08:07] LABS: AUTOMATED NEUTROPHIL # 6.8 TH/MM3 (1.8-7.7); BASOPHIL # 0.1 TH/MM3 (0-0.2); BASOPHIL % 0.6 % (0.0-2.0); EOSINOPHIL # 0.1 TH/MM3 (0-0.4); EOSINOPHIL % 0.9 % (0.0-4.0); HEMATOCRIT 41.4 % (35.0-46.0); HEMOGLOBIN 14.3 GM/DL (11.6-15.3); LYMPH % 18.6 % (9.0-44.0); LYMPHOCYTE # 1.9 TH/MM3 (1.0-4.8); MEAN CELL VOLUME 94.7 FL (80.0-100.0); MEAN CORPUSCULAR HEMOGLOBIN 32.7 PG (27.0-34.0); MEAN CORPUSCULAR HGB CONC 34.6 % (32.0-36.0); MEAN PLATELET VOLUME 7.8 FL (7.0-11.0); MONO % 14.5 % (0.0-8.0); MONOCYTE # 1.5 TH/MM3 (0-0.9); NEUT % 65.4 % (16.0-70.0); PLATELET COUNT 325 TH/MM3 (150-450); RED BLOOD COUNT 4.37 MIL/MM3 (4.00-5.30); RED CELL DISTRIBUTION WIDTH 13.2 % (11.6-17.2); WHITE BLOOD COUNT 10.4 TH/MM3 (4.0-11.0)
[2017-06-12] MEDS ORDERED: MORPHINE SULFATE 4 MG/ML INJ IV PUSH ONE ×2 (08:15→10:15)
[2017-06-12 08:27] LABS: ALT (GPT) 17 U/L (10-53); AST (GOT) 29 U/L (15-37); BICARBONATE 23.7 MEQ/L (21.0-32.0); CALCIUM 8.8 MG/DL (8.5-10.1); CHLORIDE 105 MEQ/L (98-107); CREATININE 0.99 MG/DL (0.50-1.00); GLOMERULAR FILTRATION RATE 64 ML/MIN (>89); GLUCOSE,RANDOM 83 MG/DL (74-106); SODIUM (NA) 138 MEQ/L (136-145)
--- NOTE | 2017-06-12 08:29 | RADRPT ---
EXAM DATE/TIME: 06/12/2017 08:04 [facility] COMPARISON: CHEST SINGLE AP, April 03, 2017, 18:28. INDICATIONS : Cough MEDICAL HISTORY : Ulcerative colitis. Asthma SURGICAL HISTORY : None. ENCOUNTER: Initial ACUITY: 1 week PAIN SCORE: 0/10 LOCATION: chest FINDINGS: A single view of the chest demonstrates the lungs to be symmetrically aerated without evidence of mas s, infiltrate or effusion. The cardiomediastinal contours are unremarkable. Osseous structures are intact. CONCLUSION: No acute disease. Emil Storey MD on June 12, 2017 at 8:20 Board Certified Radiologist. This report was verified electronically.
[2017-06-12 08:30] VITALS: BP 123/59; PULSE 94; RESP 16; O2SAT 98
[2017-06-12 08:35] LABS: ALKALINE PHOSPHATASE 102 U/L (45-117); BLOOD UREA NITROGEN 12 MG/DL (7-18); TOTAL BILIRUBIN ADULT 0.3 MG/DL (0.2-1.0); TOTAL PROTEIN 8.1 GM/DL (6.4-8.2)
[2017-06-12] MEDS ORDERED: IOHEXOL 350 MG/ML 10 ML VIAL (for RAD DIAG) IVCONTRAST ONE (09:10)
--- NOTE | 2017-06-12 09:21 | RADRPT ---
EXAM DATE/TIME: 06/12/2017 08:59 [facility] COMPARISON: CT ABDOMEN & PELVIS W CONTRAST, April 03, 2017, 19:54. INDICATIONS : Rectal bleeding for two days. History colitis. IV CONTRAST: 92 cc Omnipaque 350 (iohexol) IV ORAL CONTRAST: No oral contrast ingested. RADIATION DOSE: 7.11 CTDIvol (mGy) MEDICAL HISTORY : Ulcerative colitis. SURGICAL HISTORY : None. ENCOUNTER: Initial ACUITY: 1 day PAIN SCALE: 8/10 LOCATION: abdomen TECHNIQUE: Volumetric scanning of the abdomen and pelvis was performed. Using automated exposure control and ad justment of the mA and/or kV according to patient size, radiation dose was kept as low as reasonably achievable to obtain optimal diagnostic quality images. DICOM format image data is available electro nically for review and comparison. FINDINGS: LOWER LUNGS: The visualized lower lungs are clear. LIVER: Homogeneous density without lesion. There is no dilation of the biliary tree. No calcified gallston es. SPLEEN: Normal size without lesion. PANCREAS: Within normal limits. KIDNEYS: Normal in size and shape. There is no mass, stone or hydronephrosis. Stable tiny cyst upper pole rig ht kidney. ADRENAL GLANDS: Within normal limits. VASCULAR: There is no aortic aneurysm. BOWEL/MESENTERY: The bowel gas pattern is within normal limits. No free fluid or loculated fluid collections are seen. There is some persistent mild thickening involving the wall of the descending and sigmoid colon whic h was present on the prior exam without significant changes. Patient has a history of ulcerative coli tis. No significant inflammatory changes are seen in the surrounding mesenteric fat. ABDOMINAL WALL: Within normal limits. RETROPERITONEUM: There is no lymphadenopathy. BLADDER: No wall thickening or mass. REPRODUCTIVE: Within normal limits. INGUINAL: There is no lymphadenopathy or hernia. MUSCULOSKELETAL: Within normal limits for patient age. CONCLUSION: 1. There continues to be some mild bowel wall thickening involving the descending and sigmoid colon i n a patient with ulcerative colitis. This may represent some mild inflammatory changes. However, this is stable in appearance compared to the prior exam of 04/03/2017. No new or significant changes are d emonstrated. 2. Stable tiny benign renal cyst. 3. The rest of the abdomen/pelvis is stable and unremarkable. Adilson Burk MD on June 12, 2017 at 9:15 Board Certified Radiologist. This report was verified electronically.
[2017-06-12 10:15] VITALS: BP 124/81; PULSE 92; RESP 16; O2SAT 98
== END 2017-06-12 10:55 | disposition home or self-care (01) ==
LOC: NEPE 02:49
DX: K51.911 Ulcerative colitis, unspecified with rectal bleeding (principal); N28.1 Cyst of kidney, acquired; J45.909 Unspecified asthma, uncomplicated; Z72.0 Tobacco use; Z79.899 Other long term (current) drug therapy
CPT/HCPCS: 71045; 74177; 80053; 83690; 84703; 85025; 86850; 86900; 86901; 87804; 96361; 96374; 96375; 96376; 99285; J2270; J2405; J7030; Q9967

== ENCOUNTER 2017-08-12 13:56 | Emergency (ER) | payer SELFPAY ==
[~2017-08-12] VITALS: Ht 177.8 cm; Wt 82.0 kg
[2017-08-12 14:39] VITALS: BP 160/100; PULSE 107; RESP 22; TEMP 98.8; O2SAT 100
[2017-08-12 15:02] VITALS: BP 179/84; PULSE 109; RESP 18; O2SAT 98
[2017-08-12] MEDS ORDERED: SODIUM CHLOR 0.9% 1000 ML INJ 1,000 ML IV SCH (15:03)
--- NOTE | 2017-08-12 15:11 | PD ---
HPI Chief Complaint: GI Complaint Time Seen by Provider: 14:49 Travel History International Travel<30 days: No Contact w/Intl Traveler<30days: No Traveled to known affect area: No History of Present Illness HPI 37-year-old female presents to the emergency department for evaluation abdominal pain, bright red blood per the rectum, syncope 2. Patient has history of ulcerative colitis. 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 Hsu. Patient states that she has been having increasing pain over the past 2 days. She states that this morning, she felt shaky and had 2 syncopal episodes. Patient denies any headache. No acute visual changes. No chest pain or shortness of breath. She reports lower abdominal pain, 10/10, sharp. She is not currently on any prescribed medications. No known allergies. Patient states she was scoped approximately 1 year ago. No other symptoms or complaints at this time. Moderate severity. PFSH Past Medical History Hx Anticoagulant Therapy: No Asthma: Yes Blood Disorders: No Cancer: No Cardiovascular Problems: No Chemotherapy: No COPD: No Cerebrovascular Accident: No Diabetes: No Diminished Hearing: No Endocrine: No Gastrointestinal Disorders: Yes (UC) GERD: Yes Genitourinary: No Immune Disorder: No Implanted Vascular Access Dvce: No Musculoskeletal: No Neurologic: No Psychiatric: No Reproductive: No Respiratory: Yes Sleep Apnea: No Tetanus Vaccination: > 5 Years Influenza Vaccination: No ?: Not LMP: 07/29/17 Past Surgical History Abdominal Surgery: No Ear Surgery: Yes Other Surgery: Yes (colonoscopy/endoscopy) Social History Alcohol Use: Yes (6 BEERS 1/2 BOTTLE WINE DAILY) Tobacco Use: Yes Substance Use: No Allergies-Medications (Allergen,Severity, Reaction): Coded Allergies: No Known Allergies (Unverified Allergy, Unknown, 08/12/17) Reported Meds & Prescriptions Reported Meds & Active Scripts Active [place] (Hydrocodone-Acetaminophen) 5 Mg-325 Mg Tab 1 Tab PO Q6H PRN Prednisone 10 Mg Tab 10 Mg PO DIRECTED 28 Days Take 40 mg (4 tablets) daily for 1 week, then Take 30 mg (3 tablets) daily for 1 week, then Take 20 mg (2 tablets) daily for 1 week, then Take 10 mg (1 tablet) daily for 1 week Prednisone 50 Mg Tab 50 Mg PO DAILY Zofran Odt (Ondansetron Odt) 4 Mg Tab 4 Mg SL ONCE Reported Dicyclomine (Dicyclomine HCl) 10 Mg Cap 10 Mg PO TID Balsalazide 750 Mg Cap 750 Mg PO TID Review of Systems Except as stated in HPI: all other systems reviewed are Neg Physical Exam Narrative GENERAL: Well-nourished, well-developed feet patient, afebrile. SKIN: Focused skin assessment warm/dry. HEAD: Normocephalic. Atraumatic. EYES: No scleral icterus. No injection or drainage. NECK: Supple, trachea midline. No JVD or lymphadenopathy. CARDIOVASCULAR: Regular rate and rhythm without murmurs, gallops, or rubs. RESPIRATORY: Breath sounds equal bilaterally. No accessory muscle use. Lung sounds are clear to auscultation. GASTROINTESTINAL: Abdomen soft and nondistended. Patient reports tenderness when I palpate the lower abdomen peer MUSCULOSKELETAL: No cyanosis, or edema. BACK: Nontender without obvious deformity. No CVA tenderness. RECTAL EXAM: No masses or tenderness, stool is brown. Hemoccult is negative. External hemorrhoid is noted. This exam was done with patient's permission and RN at bedside. Data Data Last Documented VS Vital Signs Date Time Temp Pulse Resp B/P (MAP) Pulse Ox O2 Delivery O2 Flow Rate FiO2 08/12/17 18:15 78 15 140/90 (107) 99 Room Air 08/12/17 14:39 98.8 Orders Orders Complete Blood Count With Diff (08/12/17 15:03) Comprehensive Metabolic Panel (08/12/17 15:03) Lipase (08/12/17 15:03) Prothrombin Time / Inr (Pt) (08/12/17 15:03) Act Partial Throm Time (Ptt) (08/12/17 15:03) Urinalysis - C+S If Indicated (08/12/17 15:03) Type And Screen (08/12/17 15:03) Ecg Monitoring (08/12/17 15:03) Iv Access Insert/Monitor (08/12/17 15:03) Oximetry (08/12/17 15:03) Sodium Chlor 0.9% 1000 Ml Inj (Ns 1000 M (08/12/17 15:03) Sodium Chloride 0.9% Flush (Ns Flush) (08/12/17 15:15) Ed Urine Pregnancytest Poc (08/12/17 15:03) Electrocardiogram (08/12/17 ) Abdomen, Flat & Upright (08/12/17 ) Metoclopramide Inj (Reglan Inj) (08/12/17 15:15) Morphine Inj (Morphine Inj) (08/12/17 15:15) Ct Abd/Pel W Iv Contrast(Rout) (08/12/17 ) Iohexol 350 Inj (Omnipaque 350 Inj) (08/12/17 17:03) Ed Discharge Order (08/12/17 18:39) Labs Laboratory Tests Test 08/12/17 15:10 White Blood Count 8.2 TH/MM3 Red Blood Count 4.97 MIL/MM3 Hemoglobin 16.2 GM/DL Hematocrit 47.0 % Mean Corpuscular Volume 94.5 FL Mean Corpuscular Hemoglobin 32.6 PG Mean Corpuscular Hemoglobin Concent 34.5 % Red Cell Distribution Width 12.9 % Platelet Count 382 TH/MM3 Mean Platelet Volume 8.2 FL Neutrophils (%) (Auto) 73.4 % Lymphocytes (%) (Auto) 17.5 % Monocytes (%) (Auto) 8.4 % Eosinophils (%) (Auto) 0.2 % Basophils (%) (Auto) 0.5 % Neutrophils # (Auto) 6.0 TH/MM3 Lymphocytes # (Auto) 1.4 TH/MM3 Monocytes # (Auto) 0.7 TH/MM3 Eosinophils # (Auto) 0.0 TH/MM3 Basophils # (Auto) 0.0 TH/MM3 CBC Comment DIFF FINAL Differential Comment Prothrombin Time 10.4 SEC Prothromb Time International Ratio 1.0 RATIO Activated Partial Thromboplast Time 24.4 SEC Blood Urea Nitrogen 8 MG/DL Creatinine 0.94 MG/DL Random Glucose 93 MG/DL Total Protein 8.2 GM/DL Albumin 3.4 GM/DL Calcium Level 8.9 MG/DL Alkaline Phosphatase 88 U/L Aspartate Amino Transf (AST/SGOT) 21 U/L Alanine Aminotransferase (ALT/SGPT) 18 U/L Total Bilirubin 0.4 MG/DL Sodium Level 139 MEQ/L Potassium Level 3.5 MEQ/L Chloride Level 103 MEQ/L Carbon Dioxide Level 22.6 MEQ/L Anion Gap 13 MEQ/L Estimat Glomerular Filtration Rate 68 ML/MIN Lipase 85 U/L [facility]DM Medical Decision Making Medical Screen Exam Complete: Yes Emergency Medical Condition: Yes Medical Record Reviewed: Yes Interpretation(s) Last Impressions Abdomen/Pelvis CT 08/12/17 0000 Signed Impressions: CONCLUSION: 1. There is a mild degree of bowel wall thickening involving the descending co candace and sigmoid colon with likely mild perienteric inflammation. Findings are c onsistent with a mild colitis. 2. There are no signs of bowel obstruction and no other acute finding is ident ified. Abdomen X-Ray 08/12/17 0000 Signed Impressions: CONCLUSION: There is a single mildly dilated segment of small bowel in the left upper quadr ant with air-fluid levels. This is an abnormal finding. This could represent il eus or some degree of bowel obstruction. Consider correlating with abdomen and pelvis CT. Differential Diagnosis ulcerative colitis flare up vs. dehydration vs. GI bleed vs. anemia Narrative Course 37 year old female presents to the emergency department for evaluation of lower abdominal pain, history of ulcerative colitis, and syncope x2. She appears well on exam. EKG, CBC, CMP, lipase, PTT, PT/INR, type and screen, UA, UPT are ordered and pending. Patient has had multiple CT scans over the past year. X- ray of the abdomen is ordered and pending. Patient is given NS 1 L IV bolus, Morphine 4 mg IV, Reglan 10 mg IV. EKG shows SR, HR 80, no acute ST changes. CBC shows no acute abnormalities. CMP is unremarkable. Lipase is 85. Coags are unremarkable. UPT is negative. X-ray of the abdomen shows a single mildly dilated segment of small bowel in the left upper quadrant with air-fluid levels. This is an abnormal finding. This could represents ileus or some degree of bowel obstruction, consider correlating with abdomen and pelvis CT. CT of the abdomen/pelvis is ordered and shows shows a mild degree of bowel wall thickening involving the descending colon and sigmoid colon with likely mild perienteric inflammation, findings are consistent with a mild colitis, no signs of bowel obstruction and no other acute finding is identified. I spoke to Dr. lois loving who is on-call for gastroenterology. He recommends prednisone taper, pain medication and follow-up in the office tomorrow. He will like the patient to call first thing in the morning for an appointment he will leave a note for her to get an appointment. I discussed with the patient who verbalizes agreement and understanding. She agrees with this. She is return here for any acute worsening of symptoms. The patient was previously placed on prednisone 40 mg for 1 week followed by 30 mg for 1 week followed by 20 mg for 1 week followed by 10 mg for 1 week. Diagnosis Primary Impression: Abdominal pain Qualified Codes: R10.30 - Lower abdominal pain, unspecified Additional Impression: Ulcerative colitis Qualified Codes: K51.919 - Ulcerative colitis, unspecified with unspecified complications Referrals: Sana Hsu MD 1 day Patient Instructions: General Instructions, Ulcerative Colitis (ED) Departure Forms: Tests/Procedures, Work Release Enter return to work date: Aug 15, 2017 Additional Instructions: Take prednisone taper. Take [place] as directed as needed for pain. Caution this can make you drowsy so do not drive after taking. Call the office first thing in the morning to get an appointment, [phone]. Return to the emergency department for any acute worsening of symptoms. Med/Other Pt SpecificInfo: Prescription(s) given Scripts Tramadol (Tramadol) 50 Mg Tab 50 MG PO Q6H Y for PAIN, #12 TAB 0 Refills Prov: Lucy Peralta 08/12/17 Prednisone (Prednisone) 10 Mg Tab 10 MG PO DIRECTED for 28 Days, TAB 0 Refills Take 40 mg (4 tablets) daily for 1 week, then Take 30 mg (3 tablets) daily for 1 week, then Take 20 mg (2 tablets) daily for 1 week, then Take 10 mg (1 tablet) daily for 1 week Prov: Lucy Peralta 08/12/17 Disposition: 01 DISCHARGE HOME Condition: Stable Lucy Peralta August 12, 2017 15:11
[2017-08-12] MEDS ORDERED: METOCLOPRAMIDE HCL 10 MG/2 ML VIAL IV PUSH ONE (15:15)
[2017-08-12] MEDS ORDERED: SODIUM CHLORIDE 0.9% FLUSH 10 ML FLUSH IVF PRN (15:15)
[2017-08-12] MEDS ORDERED: MORPHINE SULFATE 4 MG/ML INJ IV PUSH ONE (15:15)
--- NOTE | 2017-08-12 15:54 | RADRPT ---
EXAM DATE: 08/12/2017 3:33 PM EDT AGE/SEX: 37 years / Female INDICATIONS: Abdominal pain and rectal bleeding. CLINICAL DATA: This is the patient's initial encounter. Patient reports that signs and symptoms have been present for 3 days and indicates a pain score of 10/10. MEDICAL/SURGICAL HISTORY: . Ulcerative colitis. None. [place] [facility] [place] [facility] [place], 018. . FINDINGS: Supine and upright views of the abdomen demonstrate a single mildly dilated segment of small bowel in the left upper quadrant measuring 4.3 cm in diameter. There is an air-fluid level within this small bowel segment. No free air is visualized. No organomegaly or concerning calcifications are identified . Bones demonstrate no acute finding. Lung bases are clear. Nipple piercings are present bilaterally. CONCLUSION: There is a single mildly dilated segment of small bowel in the left upper quadrant with air-fluid lev els. This is an abnormal finding. This could represent ileus or some degree of bowel obstruction. Con cinetechnician correlating with abdomen and pelvis CT. Electronically signed by: Emil Gonzales MD 08/12/2017 3:53 PM EDT
[2017-08-12 15:55] LABS: BASOPHIL % 0.5 % (0.0-2.0); EOSINOPHIL % 0.2 % (0.0-4.0); HEMOGLOBIN 16.2 GM/DL (11.6-15.3); LYMPH % 17.5 % (9.0-44.0); LYMPHOCYTE # 1.4 TH/MM3 (1.0-4.8); MEAN CELL VOLUME 94.5 FL (80.0-100.0); MEAN CORPUSCULAR HEMOGLOBIN 32.6 PG (27.0-34.0); MEAN CORPUSCULAR HGB CONC 34.5 % (32.0-36.0); MEAN PLATELET VOLUME 8.2 FL (7.0-11.0); MONO % 8.4 % (0.0-8.0); MONOCYTE # 0.7 TH/MM3 (0-0.9); NEUT % 73.4 % (16.0-70.0); PLATELET COUNT 382 TH/MM3 (150-450); RED BLOOD COUNT 4.97 MIL/MM3 (4.00-5.30); RED CELL DISTRIBUTION WIDTH 12.9 % (11.6-17.2); WHITE BLOOD COUNT 8.2 TH/MM3 (4.0-11.0)
[2017-08-12 16:13] LABS: PROTHROMBIN TIME - PATIENT 10.4 SEC (9.8-11.6)
[2017-08-12 16:22] LABS: ALBUMIN 3.4 GM/DL (3.4-5.0); AST (GOT) 21 U/L (15-37); BICARBONATE 22.6 MEQ/L (21.0-32.0); BLOOD UREA NITROGEN 8 MG/DL (7-18); CALCIUM 8.9 MG/DL (8.5-10.1); CHLORIDE 103 MEQ/L (98-107); CREATININE 0.94 MG/DL (0.50-1.00); GLOMERULAR FILTRATION RATE 68 ML/MIN (>89); GLUCOSE,RANDOM 93 MG/DL (74-106); SODIUM (NA) 139 MEQ/L (136-145)
[2017-08-12 16:27] LABS: ALKALINE PHOSPHATASE 88 U/L (45-117); ALT (GPT) 18 U/L (10-53); TOTAL BILIRUBIN ADULT 0.4 MG/DL (0.2-1.0); TOTAL PROTEIN 8.2 GM/DL (6.4-8.2)
[2017-08-12] MEDS ORDERED: IOHEXOL 350 MG/ML 10 ML VIAL (for RAD DIAG) IVCONTRAST ONE (17:03)
--- NOTE | 2017-08-12 17:57 | RADRPT ---
EXAM DATE: 08/12/2017 5:07 PM EDT AGE/SEX: 37 years / Female INDICATIONS: Abdominal pain, vomiting, dizziness CLINICAL DATA: This is the patient's initial encounter. Patient reports that signs and symptoms have been present for 1 day and indicates a pain score of 10/10. MEDICAL/SURGICAL HISTORY: Ulcerative colitis. Gastroesophageal reflux disease. Asthma. None. ORAL CONTRAST: No oral contrast ingested. RADIATION DOSE: 7.37 CTDI (mGy) [place] [facility] [place], 06/12/2017. . TECHNIQUE: Multiple contiguous axial images were obtained through the abdomen and pelvis following b olus infusion of 96 ml Omnipaque 350 (iohexol) nonionic water-soluble contrast as a single exam dos e. No oral contrast ingested. Using automated exposure control and adjustment of the mA and/or kV ac cording to patient size, the radiation dose was kept as low as reasonably achievable to obtain optima l diagnostic quality images. FINDINGS: Lower chest: No acute abnormality is identified. Hepatobiliary: No focal liver lesion is identified. Hepatic vasculature demonstrates no abnormality. No calcified gallstones are present. Kidneys: No hydronephrosis, stone, or mass. There is a stable 5 mm low-density lesion at the upper po le the right kidney that is too small to characterize. Adrenal Glands: Within normal limits. Spleen: Within normal limits. Pancreas: Within normal limits. Vascular: The aorta is nonaneurysmal. Bowel/Mesentery: Stomach and small bowel demonstrate no abnormality. Terminal ileum is normal. There is a mild degree of suspected wall thickening involving the descending colon and proximal sigmoid col on mild perienteric inflammation. No free air or free fluid is present. There are no findings to kiara tariq bowel obstruction. Abdominal Wall: No hernia is visualized. Retroperitoneum: No lymphadenopathy. Bladder: No wall thickening or mass. Reproductive: Within normal limits. Inguinal: No lymphadenopathy or hernia. Musculoskeletal: No acute osseous abnormality is identified. CONCLUSION: 1. There is a mild degree of bowel wall thickening involving the descending colon and sigmoid colon with likely mild perienteric inflammation. Findings are consistent with a mild colitis. 2. There are no signs of bowel obstruction and no other acute finding is identified. Electronically signed by: Emil Gonzales MD 08/12/2017 5:55 PM EDT
[2017-08-12 18:15] VITALS: BP 140/90; PULSE 78; RESP 15; O2SAT 99
--- NOTE | 2017-08-12 18:35 | PD ---
Data Data Last Documented VS Vital Signs Date Time Temp Pulse Resp B/P (MAP) Pulse Ox O2 Delivery O2 Flow Rate FiO2 08/12/17 18:15 78 15 140/90 (107) 99 Room Air 08/12/17 14:39 98.8 Orders Orders Complete Blood Count With Diff (08/12/17 15:03) Comprehensive Metabolic Panel (08/12/17 15:03) Lipase (08/12/17 15:03) Prothrombin Time / Inr (Pt) (08/12/17 15:03) Act Partial Throm Time (Ptt) (08/12/17 15:03) Urinalysis - C+S If Indicated (08/12/17 15:03) Type And Screen (08/12/17 15:03) Ecg Monitoring (08/12/17 15:03) Iv Access Insert/Monitor (08/12/17 15:03) Oximetry (08/12/17 15:03) Sodium Chlor 0.9% 1000 Ml Inj (Ns 1000 M (08/12/17 15:03) Sodium Chloride 0.9% Flush (Ns Flush) (08/12/17 15:15) Ed Urine Pregnancytest Poc (08/12/17 15:03) Electrocardiogram (08/12/17 ) Abdomen, Flat & Upright (08/12/17 ) Metoclopramide Inj (Reglan Inj) (08/12/17 15:15) Morphine Inj (Morphine Inj) (08/12/17 15:15) Ct Abd/Pel W Iv Contrast(Rout) (08/12/17 ) Iohexol 350 Inj (Omnipaque 350 Inj) (08/12/17 17:03) Labs Laboratory Tests Test 08/12/17 15:10 White Blood Count 8.2 TH/MM3 Red Blood Count 4.97 MIL/MM3 Hemoglobin 16.2 GM/DL Hematocrit 47.0 % Mean Corpuscular Volume 94.5 FL Mean Corpuscular Hemoglobin 32.6 PG Mean Corpuscular Hemoglobin Concent 34.5 % Red Cell Distribution Width 12.9 % Platelet Count 382 TH/MM3 Mean Platelet Volume 8.2 FL Neutrophils (%) (Auto) 73.4 % Lymphocytes (%) (Auto) 17.5 % Monocytes (%) (Auto) 8.4 % Eosinophils (%) (Auto) 0.2 % Basophils (%) (Auto) 0.5 % Neutrophils # (Auto) 6.0 TH/MM3 Lymphocytes # (Auto) 1.4 TH/MM3 Monocytes # (Auto) 0.7 TH/MM3 Eosinophils # (Auto) 0.0 TH/MM3 Basophils # (Auto) 0.0 TH/MM3 CBC Comment DIFF FINAL Differential Comment Prothrombin Time 10.4 SEC Prothromb Time International Ratio 1.0 RATIO Activated Partial Thromboplast Time 24.4 SEC Blood Urea Nitrogen 8 MG/DL Creatinine 0.94 MG/DL Random Glucose 93 MG/DL Total Protein 8.2 GM/DL Albumin 3.4 GM/DL Calcium Level 8.9 MG/DL Alkaline Phosphatase 88 U/L Aspartate Amino Transf (AST/SGOT) 21 U/L Alanine Aminotransferase (ALT/SGPT) 18 U/L Total Bilirubin 0.4 MG/DL Sodium Level 139 MEQ/L Potassium Level 3.5 MEQ/L Chloride Level 103 MEQ/L Carbon Dioxide Level 22.6 MEQ/L Anion Gap 13 MEQ/L Estimat Glomerular Filtration Rate 68 ML/MIN Lipase 85 U/L MDM Supervised Visit with AL: Yes Narrative Course The history, exam, and medical decision-making in the associated mid-level provider note were completed with my assistance. I reviewed and agree with the findings presented. I attest that I had a [id number] encounter with the patient on the same day, and personally performed and documented my assessment and findings in the medical record. *My assessment and Findings: 37-year-old woman with ulcerative colitis here with abdominal on her past couple days. Multiple medications already. Spoke with GI, will place on prednisone and pain medication. Plain films will bit abnormal but CT reveals no obstruction. Does reveal some evidence of Crohn's flare. He will follow-up tomorrow or the next day in the GI office. Patient comfortable plan. Gregory Wilder MD August 12, 2017 18:35
[2017-08-12] MEDS ORDERED: NORC5TAB PO (18:37)
[2017-08-12] MEDS ORDERED: PRED10 PO (18:37)
[2017-08-12] MEDS ORDERED: TRAM50TA PO (19:24)
[2017-08-12 19:30] VITALS: BP 138/77
--- NOTE | 2017-08-13 14:15 | EKG ---
Date Performed: 08/12/2017 Time Performed: 15:46:48 PTAGE: 37 years EKG: Sinus rhythm NORMAL ECG NO PREVIOUS TRACING DOCTOR: Gregory Lemus Interpretating Date/Time 08/13/2017 14:14:47
== END 2017-08-12 22:58 | disposition home or self-care (01) ==
LOC: NEPC 13:56
DX: K51.911 Ulcerative colitis, unspecified with rectal bleeding (principal); Z72.0 Tobacco use; Z79.899 Other long term (current) drug therapy
CPT/HCPCS: 74019; 74177; 80053; 83690; 84703; 85025; 85610; 85730; 86850; 86900; 86901; 93005; 96361; 96374; 96375; 99285; J2270; J2765; J7030; Q9967

== ENCOUNTER 2017-08-26 10:18 | Emergency (ER) | payer OTHER ==
[~2017-08-26] VITALS: Ht 177.8 cm; Wt 128.0 kg
[~2017-08-26 10:18] MED LIST changes: -IPRA0.02 NEB; -NORC5TAB PO; +PRED10 PO; +TRAM50TA PO
[2017-08-26] MEDS ORDERED: IOHEXOL 350 MG/ML 10 ML VIAL (for RAD DIAG) IVCONTRAST ONE (10:19)
[2017-08-26 10:41] VITALS: BP 152/84; PULSE 85; RESP 17; O2SAT 97
[2017-08-26 11:11] VITALS: BP 169/79; PULSE 88; RESP 16; O2SAT 97
[2017-08-26] MEDS ORDERED: METOCLOPRAMIDE HCL 10 MG/2 ML VIAL IV PUSH ONE ×2 (11:30→15:45)
[2017-08-26] MEDS ORDERED: SODIUM CHLOR 0.9% 1000 ML INJ 1,000 ML IV ONE ×2 (11:30→16:00)
[2017-08-26] MEDS ORDERED: MORPHINE SULFATE 8 MG/ML INJ IV PUSH ONE ×2 (11:30→15:45)
[2017-08-26 11:32] LABS: AUTOMATED NEUTROPHIL # 6.2 TH/MM3 (1.8-7.7); BASOPHIL # 0.1 TH/MM3 (0-0.2); BASOPHIL % 0.7 % (0.0-2.0); EOSINOPHIL % 0.5 % (0.0-4.0); HEMATOCRIT 49.7 % (35.0-46.0); HEMOGLOBIN 16.7 GM/DL (11.6-15.3); LYMPH % 18.6 % (9.0-44.0); LYMPHOCYTE # 1.6 TH/MM3 (1.0-4.8); MEAN CELL VOLUME 93.5 FL (80.0-100.0); MEAN CORPUSCULAR HEMOGLOBIN 31.4 PG (27.0-34.0); MEAN CORPUSCULAR HGB CONC 33.5 % (32.0-36.0); MEAN PLATELET VOLUME 8.2 FL (7.0-11.0); MONO % 6.7 % (0.0-8.0); MONOCYTE # 0.6 TH/MM3 (0-0.9); NEUT % 73.5 % (16.0-70.0); PLATELET COUNT 342 TH/MM3 (150-450); RED BLOOD COUNT 5.32 MIL/MM3 (4.00-5.30); RED CELL DISTRIBUTION WIDTH 13.4 % (11.6-17.2); WHITE BLOOD COUNT 8.4 TH/MM3 (4.0-11.0)
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
[2017-08-26 12:05] LABS: ALKALINE PHOSPHATASE 108 U/L (45-117); TOTAL BILIRUBIN ADULT 0.2 MG/DL (0.2-1.0); TOTAL PROTEIN 9.3 GM/DL (6.4-8.2)
[2017-08-26 12:06] LABS: TROPONIN I LESS THAN 0.02 NG/ML (0.02-0.05)
[2017-08-26 12:10] LABS: ALBUMIN 3.7 GM/DL (3.4-5.0); ALT (GPT) 29 U/L (10-53); AST (GOT) 38 U/L (15-37); BICARBONATE 20.3 MEQ/L (21.0-32.0); BLOOD UREA NITROGEN 7 MG/DL (7-18); CALCIUM 9.1 MG/DL (8.5-10.1); CHLORIDE 106 MEQ/L (98-107); CREATININE 0.75 MG/DL (0.50-1.00); GLOMERULAR FILTRATION RATE 88 ML/MIN (>89); GLUCOSE,RANDOM 79 MG/DL (74-106); SODIUM (NA) 139 MEQ/L (136-145)
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
[2017-08-26 13:10] VITALS: BP 128/60; PULSE 84; RESP 17; O2SAT 98
[2017-08-26 13:27] VITALS: BP_SYST 137; BP_SYST 139; BP_SYST 141; BP_DIAS 77; BP_DIAS 79; BP_DIAS 91; RESP 16; RESP 17; RESP 21
[2017-08-26 13:36] LABS: PROTHROMBIN TIME - PATIENT 10.3 SEC (9.8-11.6)
[2017-08-26 15:05] VITALS: BP 134/65; PULSE 88; RESP 19; O2SAT 97
[2017-08-26 15:23] LABS: BILIRUBIN, URINE NEG (NEG); BLOOD, URINE NEG (NEG); GLUCOSE,URINE NEG (NEG); KETONE, URINE 10 mg/dL (NEG); MUCUS URINE FEW /lpf (OCC); NITRITE,URINE NEG (NEG); SQUAMOUS EPITHELIAL CELL URINE 1 /hpf (0-5); URINE COLOR YELLOW (YELLW/STRAW); URINE LEUKOCYTE ESTERASE NEG (NEG)
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
[2017-08-26] MEDS ORDERED: ZOFR4TAB3 SL (17:07)
[2017-08-26] MEDS ORDERED: TRAM50TA PO (17:07)
[2017-08-26 17:17] VITALS: BP 131/76
--- NOTE | 2017-08-27 09:46 | EKG ---
Date Performed: 08/26/2017 Time Performed: 10:40:39 PTAGE: 37 years EKG: Sinus rhythm NORMAL ECG PREVIOUS TRACING : 08/12/2017 15.46 DOCTOR: Gregory Lemus Interpretating Date/Time 08/27/2017 09:44:13
== END 2017-08-26 17:17 | disposition home or self-care (01) ==
LOC: NEPE 10:18 → NEDA 16:44 → UNDOADMOB 16:44
DX: R55 Syncope and collapse (principal); R10.9 Unspecified abdominal pain; S09.90XA Unspecified injury of head, initial encounter; V89.2XXA Person injured in unspecified motor-vehicle accident, traffic, initial encounter
CPT/HCPCS: 70450; 71045; 72125; 74177; 80053; 81001; 82550; 84484; 84703; 85025; 85610; 85730; 93005; 96361; 96374; 96375; 96376; 99285; J2270; J2765; J7030; Q9967